=== PATIENT | female | born 1955 | race African-American/Black ===

== ENCOUNTER 2022-09-02 15:50 | Inpatient (IN) | payer OTHER, BC ==
[2022-09-02 18:18] LABS: BASO % 0.4 % (0-2.0); HEMATOCRIT 28.6 % (32.4-45.2); HEMOGLOBIN 8.8 GM/dL (10.7-15.3); LYMPH % 15.1 % (8-40); MCH 28.3 pg (25.7-33.7); MCHC 30.6 g/dl (32.0-36.0); MEAN CELL VOLUME 92.5 fl (80-96); MEAN PLT VOLUME 8.1 fl (7.5-11.1); MONO % 9.3 % (3.8-10.2); NEUT % 74.2 % (42.8-82.8); PLATELET COUNT 246 10^3/uL (134-434); RDW 20.9 % (11.6-15.6); WHITE BLOOD COUNT 6.8 K/mm3 (4.0-10.0)
[2022-09-02 18:27] LABS: INR 1.03 (0.83-1.09); PROTHROMBIN TIME (PATIENT) 11.9 SEC (9.7-13.0)
[2022-09-02 18:30] LABS: ACTIVATED PTT 28.2 SECONDS (25.2-36.5)
[2022-09-02 18:40] LABS: CALCIUM 8.7 mg/dL (8.5-10.1)
[2022-09-02 18:41] LABS: ALBUMIN 1.5 g/dl (3.4-5.0); BLOOD UREA NITROGEN 36.9 mg/dL (7-18); MAGNESIUM 2.6 mg/dL (1.8-2.4)
[2022-09-02 18:44] LABS: CREATININE 5.9 mg/dL (0.55-1.3); PHOSPHOROUS 4.2 mg/dL (2.5-4.9)
[2022-09-02 18:45] LABS: BILIRUBIN,TOTAL 0.2 mg/dL (0.2-1); TOT PROT 5.5 g/dl (6.4-8.2)
[2022-09-02 20:47] LABS: ANISOCYTOSIS 3+; MACROCYTOSIS 1+; OVALOCYTE 1+
[2022-09-02 21:08] LABS: PLATELET ESTIMATE ADEQUATE
[2022-09-03 08:01] LABS: BASO % 0.6 % (0-2.0); HEMOGLOBIN 8.3 GM/dL (10.7-15.3); LYMPH % 19.5 % (8-40); MCH 29.2 pg (25.7-33.7); MCHC 31.8 g/dl (32.0-36.0); MEAN CELL VOLUME 91.6 fl (80-96); MEAN PLT VOLUME 8.3 fl (7.5-11.1); MONO % 11.4 % (3.8-10.2); NEUT % 67.5 % (42.8-82.8); PLATELET COUNT 251 10^3/uL (134-434); RBC 2.84 M/mm3 (3.60-5.2); WHITE BLOOD COUNT 7.8 K/mm3 (4.0-10.0)
[2022-09-03 08:23] LABS: ALBUMIN 1.4 g/dl (3.4-5.0); BLOOD UREA NITROGEN 39.7 mg/dL (7-18); CALCIUM 8.7 mg/dL (8.5-10.1)
[2022-09-03 08:28] LABS: BILIRUBIN,TOTAL 0.3 mg/dL (0.2-1)
[2022-09-03] MEDS ORDERED: SODIUM CHLORIDE 250 ML IV PRN (08:46)
[2022-09-03] MEDS ORDERED: EPOETIN ALFA-EPBX 10,000 UNIT/ML VIAL SQ ONE (09:00)
[2022-09-03] MEDS ORDERED: FLU VACC QS2022-23(6MOS UP)/PF 60 MCG/0.5 ML SYRINGE IM ONE (13:00)
[2022-09-03] MEDS ORDERED: BISACODYL 10 MG SUPP.RECT RC PRN (21:12)
[2022-09-03] MEDS ORDERED: POLYETHYLENE GLYCOL (HEALTHYLAX) 3350 17 GM PACKET PO PRN (21:12)
[2022-09-03] MEDS ORDERED: SODIUM PHOSPHATE/NA BIPHOS 133 ML ENEMA RC PRN (21:12)
[2022-09-03] MEDS ORDERED: MAGNESIUM HYDROX 2400MG/30ML ORAL SUSPENSION 30 ML CUP PO PRN (21:12)
[2022-09-03] MEDS: GABAPENTIN 100 MG CAPSULE PO SCH (22:16)
[2022-09-03] MEDS: ATORVASTATIN CA 40 MG TABLET (FP) PO SCH (22:16)
[2022-09-03] MEDS: ARTIFICIAL TEARS (POLYVINYL ALCOHOL) OPTH DROPS OU SCH (22:17)
[2022-09-04] MEDS: oxyCODONE HCL 5 MG TABLET PO PRN ×2 (02:04→13:31)
[2022-09-04] MEDS: ACETAMINOPHEN 325 MG TABLET (FP) PO PRN ×2 (02:05→13:30)
[2022-09-04] MEDS: GABAPENTIN 100 MG CAPSULE PO SCH ×3 (05:36→22:46)
[2022-09-04] MEDS: SEVELAMER CARBONATE 800 MG TAB (FP) PO SCH ×3 (11:48→17:24)
[2022-09-04] MEDS: FOLIC ACID 1 MG TABLET (FP) PO SCH (11:48)
[2022-09-04] MEDS: FAMOTIDINE 10 MG TABLET PO SCH (11:48)
[2022-09-04] MEDS: ARTIFICIAL TEARS (POLYVINYL ALCOHOL) OPTH DROPS OU SCH ×4 (13:33→22:48)
[2022-09-04] MEDS: ATORVASTATIN CA 40 MG TABLET (FP) PO SCH (22:46)
[2022-09-05] MEDS: GABAPENTIN 100 MG CAPSULE PO SCH ×3 (06:04→22:12)
[2022-09-05] MEDS: SEVELAMER CARBONATE 800 MG TAB (FP) PO SCH ×3 (08:44→17:14)
[2022-09-05] MEDS: ARTIFICIAL TEARS (POLYVINYL ALCOHOL) OPTH DROPS OU SCH ×4 (11:20→22:13)
[2022-09-05] MEDS: FERROUS SO4 325 MG TABLET (FP) PO SCH (11:21)
[2022-09-05] MEDS: FAMOTIDINE 10 MG TABLET PO SCH (11:21)
[2022-09-05] MEDS: FOLIC ACID 1 MG TABLET (FP) PO SCH (11:21)
[2022-09-05] MEDS: oxyCODONE HCL 5 MG TABLET PO PRN (18:19)
[2022-09-05] MEDS: ATORVASTATIN CA 40 MG TABLET (FP) PO SCH (22:12)
[2022-09-06] MEDS: GABAPENTIN 100 MG CAPSULE PO SCH ×3 (06:15→21:53)
[2022-09-06] MEDS ORDERED: SODIUM CHLORIDE 250 ML IV PRN (07:50)
[2022-09-06] MEDS: SEVELAMER CARBONATE 800 MG TAB (FP) PO SCH ×3 (08:02→17:11)
[2022-09-06] MEDS ORDERED: EPOETIN ALFA-EPBX 4,000 UNIT/ML VIAL IVPUSH ONE (10:00)
[2022-09-06] MEDS: FOLIC ACID 1 MG TABLET (FP) PO SCH (12:40)
[2022-09-06] MEDS: FAMOTIDINE 10 MG TABLET PO SCH (12:40)
[2022-09-06] MEDS: ARTIFICIAL TEARS (POLYVINYL ALCOHOL) OPTH DROPS OU SCH ×5 (12:41→22:23)
[2022-09-06] MEDS: COLLAGENASE CLOSTRIDIUM HIST. 30 GRAMS TUBE TP SCH (14:32)
[2022-09-06] MEDS: AMINO ACIDS/PROTEIN HYDROLYS 30 ML LIQUID.PKT PO SCH (17:11)
[2022-09-06] MEDS: oxyCODONE HCL 5 MG TABLET PO PRN (17:34)
[2022-09-06] MEDS: ACETAMINOPHEN 325 MG TABLET (FP) PO PRN (17:35)
[2022-09-06] MEDS: ATORVASTATIN CA 40 MG TABLET (FP) PO SCH (21:53)
[2022-09-07] MEDS: GABAPENTIN 100 MG CAPSULE PO SCH ×3 (06:13→22:52)
[2022-09-07] MEDS: ZINC SULFATE 220 MG CAPSULE (FP) PO SCH (09:49)
[2022-09-07] MEDS: FAMOTIDINE 10 MG TABLET PO SCH (09:49)
[2022-09-07] MEDS: FOLIC ACID 1 MG TABLET (FP) PO SCH (09:50)
[2022-09-07] MEDS: VITAMIN B COMP W-C 1 EA TABLET (NEPHRO-VITE) PO SCH (09:50)
[2022-09-07] MEDS: SEVELAMER CARBONATE 800 MG TAB (FP) PO SCH ×3 (09:50→17:20)
[2022-09-07] MEDS: AMINO ACIDS/PROTEIN HYDROLYS 30 ML LIQUID.PKT PO SCH ×2 (09:50→17:20)
[2022-09-07] MEDS: FERROUS SO4 325 MG TABLET (FP) PO SCH (09:50)
[2022-09-07] MEDS: ARTIFICIAL TEARS (POLYVINYL ALCOHOL) OPTH DROPS OU SCH ×4 (09:52→22:53)
[2022-09-07] MEDS: COLLAGENASE CLOSTRIDIUM HIST. 30 GRAMS TUBE TP SCH (09:53)
[2022-09-07] MEDS ORDERED: SODIUM CHLORIDE 250 ML IV PRN (13:03)
[2022-09-07] MEDS: ATORVASTATIN CA 40 MG TABLET (FP) PO SCH (22:53)
[2022-09-08] MEDS: GABAPENTIN 100 MG CAPSULE PO SCH ×3 (06:10→21:04)
[2022-09-08] MEDS: oxyCODONE HCL 5 MG TABLET PO PRN ×3 (06:34→21:08)
[2022-09-08] MEDS: ARTIFICIAL TEARS (POLYVINYL ALCOHOL) OPTH DROPS OU SCH ×5 (09:01→21:03)
[2022-09-08] MEDS ORDERED: EPOETIN ALFA-EPBX 10,000 UNIT/ML VIAL SQ ONE (09:30)
[2022-09-08 09:39] LABS: HEMATOCRIT 26.3 % (32.4-45.2); HEMOGLOBIN 8.4 GM/dL (10.7-15.3); MCH 29.3 pg (25.7-33.7); MCHC 31.8 g/dl (32.0-36.0); MEAN PLT VOLUME 8.5 fl (7.5-11.1); PLATELET COUNT 278 10^3/uL (134-434); RBC 2.86 M/mm3 (3.60-5.2); RDW 21.2 % (11.6-15.6)
[2022-09-08 10:01] LABS: CALCIUM 8.8 mg/dL (8.5-10.1)
[2022-09-08 10:02] LABS: ALBUMIN 1.4 g/dl (3.4-5.0); BLOOD UREA NITROGEN 27.5 mg/dL (7-18)
[2022-09-08 10:04] LABS: CREATININE 4.6 mg/dL (0.55-1.3)
[2022-09-08 10:06] LABS: BILIRUBIN,TOTAL 0.3 mg/dL (0.2-1); TOT PROT 5.2 g/dl (6.4-8.2)
[2022-09-08] MEDS: AMINO ACIDS/PROTEIN HYDROLYS 30 ML LIQUID.PKT PO SCH ×2 (12:19→17:42)
[2022-09-08] MEDS: SEVELAMER CARBONATE 800 MG TAB (FP) PO SCH ×3 (12:20→17:42)
[2022-09-08] MEDS: FOLIC ACID 1 MG TABLET (FP) PO SCH (12:20)
[2022-09-08] MEDS: FAMOTIDINE 10 MG TABLET PO SCH (12:20)
[2022-09-08] MEDS: VITAMIN B COMP W-C 1 EA TABLET (NEPHRO-VITE) PO SCH (12:21)
[2022-09-08] MEDS: COLLAGENASE CLOSTRIDIUM HIST. 30 GRAMS TUBE TP SCH (12:21)
[2022-09-08] MEDS: ZINC SULFATE 220 MG CAPSULE (FP) PO SCH (12:21)
[2022-09-08] MEDS ORDERED: oxyCODONE HCL 5 MG TABLET PO PRN (17:06)
[2022-09-08] MEDS: TOBRAMYCIN 0.3% OPHTH SOLN 5 ML BOTTLE OD SCH ×2 (17:19→21:02)
[2022-09-08] MEDS: ACETAMINOPHEN 325 MG TABLET (FP) PO PRN (18:53)
[2022-09-08] MEDS: ATORVASTATIN CA 40 MG TABLET (FP) PO SCH (21:04)
[2022-09-09] MEDS: TOBRAMYCIN 0.3% OPHTH SOLN 5 ML BOTTLE OD SCH ×3 (05:45→22:15)
[2022-09-09] MEDS: GABAPENTIN 100 MG CAPSULE PO SCH ×3 (05:45→22:15)
[2022-09-09] MEDS: ACETAMINOPHEN 325 MG TABLET (FP) PO PRN ×2 (05:45→20:37)
[2022-09-09] MEDS: oxyCODONE HCL 5 MG TABLET PO PRN ×2 (05:46→20:36)
[2022-09-09] MEDS: AMINO ACIDS/PROTEIN HYDROLYS 30 ML LIQUID.PKT PO SCH ×2 (09:26→17:23)
[2022-09-09] MEDS: SEVELAMER CARBONATE 800 MG TAB (FP) PO SCH ×3 (09:27→17:23)
[2022-09-09] MEDS: FERROUS SO4 325 MG TABLET (FP) PO SCH (09:27)
[2022-09-09] MEDS: FOLIC ACID 1 MG TABLET (FP) PO SCH (09:27)
[2022-09-09] MEDS: VITAMIN B COMP W-C 1 EA TABLET (NEPHRO-VITE) PO SCH (09:27)
[2022-09-09] MEDS: FAMOTIDINE 10 MG TABLET PO SCH (09:27)
[2022-09-09] MEDS: ZINC SULFATE 220 MG CAPSULE (FP) PO SCH (09:27)
[2022-09-09] MEDS: ARTIFICIAL TEARS (POLYVINYL ALCOHOL) OPTH DROPS OU SCH ×4 (09:28→22:15)
[2022-09-09] MEDS: COLLAGENASE CLOSTRIDIUM HIST. 30 GRAMS TUBE TP SCH (09:29)
[2022-09-09] MEDS ORDERED: SODIUM CHLORIDE 250 ML IV PRN (21:10)
[2022-09-09] MEDS: ATORVASTATIN CA 40 MG TABLET (FP) PO SCH (22:15)
[2022-09-10] MEDS: GABAPENTIN 100 MG CAPSULE PO SCH ×3 (05:57→22:48)
[2022-09-10] MEDS: TOBRAMYCIN 0.3% OPHTH SOLN 5 ML BOTTLE OD SCH ×3 (06:01→22:49)
[2022-09-10] MEDS: AMINO ACIDS/PROTEIN HYDROLYS 30 ML LIQUID.PKT PO SCH ×2 (08:02→17:49)
[2022-09-10] MEDS: SEVELAMER CARBONATE 800 MG TAB (FP) PO SCH ×3 (08:02→17:49)
[2022-09-10] MEDS: oxyCODONE HCL 5 MG TABLET PO PRN (08:48)
[2022-09-10] MEDS: ACETAMINOPHEN 325 MG TABLET (FP) PO PRN (08:49)
[2022-09-10] MEDS ORDERED: metoPROLOL SUCCINATE 25 MG TAB.SR.24H (FP) PO ONE (09:30)
[2022-09-10] MEDS ORDERED: metoPROLOL SUCCINATE 25 MG TAB.SR.24H (FP) PO SCH (10:00)
[2022-09-10] MEDS ORDERED: EPOETIN ALFA-EPBX 10,000 UNIT/ML VIAL IVPUSH ONE (10:30)
[2022-09-10] MEDS: HEPARIN NA (PORCINE) 5,000 UNITS/ML 1ML VIAL SQ SCH ×2 (13:15→22:48)
[2022-09-10] MEDS: FAMOTIDINE 10 MG TABLET PO SCH (13:15)
[2022-09-10] MEDS: FOLIC ACID 1 MG TABLET (FP) PO SCH (13:15)
[2022-09-10] MEDS: VITAMIN B COMP W-C 1 EA TABLET (NEPHRO-VITE) PO SCH (13:15)
[2022-09-10] MEDS: ZINC SULFATE 220 MG CAPSULE (FP) PO SCH (13:15)
[2022-09-10] MEDS: COLLAGENASE CLOSTRIDIUM HIST. 30 GRAMS TUBE TP SCH (13:16)
[2022-09-10] MEDS: ARTIFICIAL TEARS (POLYVINYL ALCOHOL) OPTH DROPS OU SCH ×4 (13:16→22:49)
[2022-09-10] MEDS ORDERED: APIXABAN 5 MG TABLET PO SCH (13:45)
[2022-09-10] MEDS: CYCLOBENZAPRINE HCL 5 MG TABLET PO SCH (15:14)
[2022-09-10 19:25] LABS: BLOOD UREA NITROGEN 16.6 mg/dL (7-18); CALCIUM 8.4 mg/dL (8.5-10.1)
[2022-09-10 19:28] LABS: CREATININE 2.7 mg/dL (0.55-1.3)
[2022-09-10] MEDS ORDERED: METOPROLOL TARTRATE 25 MG TABLET (FP) PO SCH (22:00)
[2022-09-10] MEDS: METOPROLOL TARTRATE 25 MG TABLET (FP) PO SCH (22:48)
[2022-09-10] MEDS: ATORVASTATIN CA 40 MG TABLET (FP) PO SCH (22:48)
[2022-09-11] MEDS ORDERED: BISACODYL 10 MG SUPP.RECT RC PRN (02:58)
[2022-09-11] MEDS ORDERED: oxyCODONE HCL 5 MG TABLET PO PRN (02:58)
[2022-09-11] MEDS ORDERED: ACETAMINOPHEN 325 MG TABLET (FP) PO PRN (02:58)
[2022-09-11] MEDS ORDERED: POLYETHYLENE GLYCOL (HEALTHYLAX) 3350 17 GM PACKET PO PRN (02:58)
[2022-09-11] MEDS ORDERED: SODIUM PHOSPHATE/NA BIPHOS 133 ML ENEMA RC PRN (02:58)
[2022-09-11] MEDS ORDERED: MAGNESIUM HYDROX 2400MG/30ML ORAL SUSPENSION 30 ML CUP PO PRN (02:58)
[2022-09-11] MEDS: METOPROLOL TARTRATE 25 MG TABLET (FP) PO SCH ×3 (07:07→22:44)
[2022-09-11] MEDS: GABAPENTIN 100 MG CAPSULE PO SCH ×3 (07:07→22:44)
[2022-09-11] MEDS: TOBRAMYCIN 0.3% OPHTH SOLN 5 ML BOTTLE OD SCH ×3 (07:11→22:45)
[2022-09-11] MEDS: SEVELAMER CARBONATE 800 MG TAB (FP) PO SCH ×3 (07:45→18:25)
[2022-09-11] MEDS: AMINO ACIDS/PROTEIN HYDROLYS 30 ML LIQUID.PKT PO SCH ×2 (07:45→18:25)
[2022-09-11] MEDS: FOLIC ACID 1 MG TABLET (FP) PO SCH (10:14)
[2022-09-11] MEDS: HEPARIN NA (PORCINE) 5,000 UNITS/ML 1ML VIAL SQ SCH ×2 (10:15→22:44)
[2022-09-11] MEDS: VITAMIN B COMP W-C 1 EA TABLET (NEPHRO-VITE) PO SCH (10:15)
[2022-09-11] MEDS: CYCLOBENZAPRINE HCL 5 MG TABLET PO SCH (10:15)
[2022-09-11] MEDS: ZINC SULFATE 220 MG CAPSULE (FP) PO SCH (10:15)
[2022-09-11] MEDS: FERROUS SO4 325 MG TABLET (FP) PO SCH (10:15)
[2022-09-11] MEDS: FAMOTIDINE 10 MG TABLET PO SCH (10:15)
[2022-09-11] MEDS: ARTIFICIAL TEARS (POLYVINYL ALCOHOL) OPTH DROPS OU SCH ×4 (10:16→22:45)
[2022-09-11] MEDS: COLLAGENASE CLOSTRIDIUM HIST. 30 GRAMS TUBE TP SCH (10:17)
[2022-09-11] MEDS ORDERED: AMOX TR/POT CLAV 500MG/125MG TABLETS (FP) PO ONE (12:00)
[2022-09-11] MEDS: oxyCODONE HCL 5 MG TABLET PO PRN (12:47)
[2022-09-11] MEDS ORDERED: VANCOMYCIN 1 GM in D5W (PRE-DOCKED) 1,000 MG/250 ML IVPB ONE (16:00)
[2022-09-11] MEDS ORDERED: AMOX TR/POT CLAV 500MG/125MG TABLETS (FP) PO SCH (17:30)
[2022-09-11] MEDS ORDERED: PIPERACILLIN/TAZOB 2.25 GM 2.25 GM in DEXTROSE 5%-WATER - 50 ML IVPB SCH (18:00)
[2022-09-11] MEDS ORDERED: VANCOMYCIN 1 GM/200 ML PREMIX BAG (RESTRICTED TO ID ONLY) IVPB ONE (18:15)
[2022-09-11] MEDS: PIPERACILLIN/TAZOB 2.25 GM 2.25 GM in DEXTROSE 5%-WATER - 50 ML IVPB SCH (21:43)
[2022-09-11] MEDS: ATORVASTATIN CA 40 MG TABLET (FP) PO SCH (22:44)
[2022-09-12] MEDS: PIPERACILLIN/TAZOB 2.25 GM 2.25 GM in DEXTROSE 5%-WATER - 50 ML IVPB SCH ×3 (02:28→18:57)
[2022-09-12] MEDS: GABAPENTIN 100 MG CAPSULE PO SCH ×3 (07:17→21:43)
[2022-09-12] MEDS: METOPROLOL TARTRATE 25 MG TABLET (FP) PO SCH ×3 (07:17→21:47)
[2022-09-12] MEDS: TOBRAMYCIN 0.3% OPHTH SOLN 5 ML BOTTLE OD SCH ×3 (07:18→21:45)
[2022-09-12] MEDS: SEVELAMER CARBONATE 800 MG TAB (FP) PO SCH ×3 (08:47→17:52)
[2022-09-12] MEDS: AMINO ACIDS/PROTEIN HYDROLYS 30 ML LIQUID.PKT PO SCH ×2 (08:47→17:52)
[2022-09-12] MEDS: ZINC SULFATE 220 MG CAPSULE (FP) PO SCH (10:53)
[2022-09-12] MEDS: CYCLOBENZAPRINE HCL 5 MG TABLET PO SCH (10:53)
[2022-09-12] MEDS: FAMOTIDINE 10 MG TABLET PO SCH (10:53)
[2022-09-12] MEDS: FOLIC ACID 1 MG TABLET (FP) PO SCH (10:53)
[2022-09-12] MEDS: VITAMIN B COMP W-C 1 EA TABLET (NEPHRO-VITE) PO SCH (10:53)
[2022-09-12] MEDS: HEPARIN NA (PORCINE) 5,000 UNITS/ML 1ML VIAL SQ SCH ×2 (10:54→21:44)
[2022-09-12] MEDS: COLLAGENASE CLOSTRIDIUM HIST. 30 GRAMS TUBE TP SCH (10:54)
[2022-09-12] MEDS: ARTIFICIAL TEARS (POLYVINYL ALCOHOL) OPTH DROPS OU SCH ×4 (10:54→21:45)
[2022-09-12] MEDS: oxyCODONE HCL 5 MG TABLET PO PRN (13:13)
[2022-09-12] MEDS ORDERED: VANCOMYCIN/WATER FOR INJ (PEG) 1,000 MG/200 ML BAG IVPB ONE (15:45)
[2022-09-12] MEDS: ATORVASTATIN CA 40 MG TABLET (FP) PO SCH (21:44)
[2022-09-13] MEDS: PIPERACILLIN/TAZOB 2.25 GM 2.25 GM in DEXTROSE 5%-WATER - 50 ML IVPB SCH ×3 (01:16→17:30)
[2022-09-13] MEDS: GABAPENTIN 100 MG CAPSULE PO SCH ×3 (06:27→23:08)
[2022-09-13] MEDS: METOPROLOL TARTRATE 25 MG TABLET (FP) PO SCH ×3 (06:27→23:08)
[2022-09-13] MEDS: TOBRAMYCIN 0.3% OPHTH SOLN 5 ML BOTTLE OD SCH ×2 (06:39→14:54)
[2022-09-13] MEDS: AMINO ACIDS/PROTEIN HYDROLYS 30 ML LIQUID.PKT PO SCH ×2 (08:55→17:30)
[2022-09-13] MEDS: SEVELAMER CARBONATE 800 MG TAB (FP) PO SCH ×3 (08:55→17:30)
[2022-09-13] MEDS ORDERED: SODIUM CHLORIDE 250 ML IV PRN ×2 (09:48→22:29)
[2022-09-13] MEDS: oxyCODONE HCL 5 MG TABLET PO PRN (10:10)
[2022-09-13] MEDS ORDERED: EPOETIN ALFA-EPBX 4,000 UNIT/ML VIAL SQ ONE (10:15)
[2022-09-13 10:28] LABS: HEMATOCRIT 27.3 % (32.4-45.2); HEMOGLOBIN 8.7 GM/dL (10.7-15.3); MCH 29.3 pg (25.7-33.7); MCHC 31.7 g/dl (32.0-36.0); MEAN CELL VOLUME 92.3 fl (80-96); MEAN PLT VOLUME 9.4 fl (7.5-11.1); PLATELET COUNT 310 10^3/uL (134-434); RBC 2.96 M/mm3 (3.60-5.2); RDW 21.6 % (11.6-15.6); WHITE BLOOD COUNT 12.3 K/mm3 (4.0-10.0)
[2022-09-13] MEDS: COLLAGENASE CLOSTRIDIUM HIST. 30 GRAMS TUBE TP SCH (12:46)
[2022-09-13] MEDS: HEPARIN NA (PORCINE) 5,000 UNITS/ML 1ML VIAL SQ SCH ×2 (12:46→23:08)
[2022-09-13] MEDS: ZINC SULFATE 220 MG CAPSULE (FP) PO SCH (12:50)
[2022-09-13] MEDS: FAMOTIDINE 10 MG TABLET PO SCH (12:50)
[2022-09-13] MEDS: CYCLOBENZAPRINE HCL 5 MG TABLET PO SCH (12:50)
[2022-09-13] MEDS: VITAMIN B COMP W-C 1 EA TABLET (NEPHRO-VITE) PO SCH (12:50)
[2022-09-13] MEDS: FOLIC ACID 1 MG TABLET (FP) PO SCH (12:50)
[2022-09-13] MEDS: ARTIFICIAL TEARS (POLYVINYL ALCOHOL) OPTH DROPS OU SCH ×4 (12:53→23:08)
[2022-09-13] MEDS: FERROUS SO4 325 MG TABLET (FP) PO SCH (12:53)
[2022-09-13] MEDS ORDERED: BISACODYL 10 MG SUPP.RECT RC PRN (22:29)
[2022-09-13] MEDS ORDERED: MAGNESIUM HYDROX 2400MG/30ML ORAL SUSPENSION 30 ML CUP PO PRN (22:29)
[2022-09-13] MEDS ORDERED: POLYETHYLENE GLYCOL (HEALTHYLAX) 3350 17 GM PACKET PO PRN (22:29)
[2022-09-13] MEDS ORDERED: SODIUM PHOSPHATE/NA BIPHOS 133 ML ENEMA RC PRN (22:29)
[2022-09-13] MEDS ORDERED: oxyCODONE HCL 5 MG TABLET PO PRN (22:29)
[2022-09-13] MEDS: ATORVASTATIN CA 40 MG TABLET (FP) PO SCH (23:08)
[2022-09-14] MEDS: PIPERACILLIN/TAZOB 2.25 GM 2.25 GM in DEXTROSE 5%-WATER - 50 ML IVPB SCH ×2 (02:20→10:17)
[2022-09-14] MEDS: TOBRAMYCIN 0.3% OPHTH SOLN 5 ML BOTTLE OD SCH ×4 (02:22→23:00)
[2022-09-14] MEDS: METOPROLOL TARTRATE 25 MG TABLET (FP) PO SCH ×2 (07:06→14:38)
[2022-09-14] MEDS: GABAPENTIN 100 MG CAPSULE PO SCH ×2 (07:06→14:38)
[2022-09-14] MEDS: SEVELAMER CARBONATE 800 MG TAB (FP) PO SCH ×3 (09:18→17:46)
[2022-09-14] MEDS: AMINO ACIDS/PROTEIN HYDROLYS 30 ML LIQUID.PKT PO SCH ×2 (10:17→17:46)
[2022-09-14] MEDS: ZINC SULFATE 220 MG CAPSULE (FP) PO SCH (10:17)
[2022-09-14] MEDS: VITAMIN B COMP W-C 1 EA TABLET (NEPHRO-VITE) PO SCH (10:18)
[2022-09-14] MEDS: CYCLOBENZAPRINE HCL 5 MG TABLET PO SCH (10:18)
[2022-09-14] MEDS: ARTIFICIAL TEARS (POLYVINYL ALCOHOL) OPTH DROPS OU SCH ×4 (10:18→23:00)
[2022-09-14] MEDS: FAMOTIDINE 10 MG TABLET PO SCH (10:18)
[2022-09-14] MEDS: FOLIC ACID 1 MG TABLET (FP) PO SCH (10:18)
[2022-09-14] MEDS: HEPARIN NA (PORCINE) 5,000 UNITS/ML 1ML VIAL SQ SCH ×2 (10:33→23:00)
[2022-09-14] MEDS: COLLAGENASE CLOSTRIDIUM HIST. 30 GRAMS TUBE TP SCH (10:33)
[2022-09-14] MEDS ORDERED: AMOX TR/POT CLAV 500MG/125MG TABLETS (FP) PO ONE (13:58)
[2022-09-14] MEDS: AMOX TR/POT CLAV 500MG/125MG TABLETS (FP) PO SCH (17:46)
[2022-09-14] MEDS ORDERED: SODIUM CHLORIDE 250 ML IV PRN (19:51)
[2022-09-14] MEDS: OFLOXACIN 0.3% OTIC SOLUTION 5 ML BOTTLE AS SCH (23:00)
[2022-09-15] MEDS: METOPROLOL TARTRATE 25 MG TABLET (FP) PO SCH ×4 (02:29→22:02)
[2022-09-15] MEDS: GABAPENTIN 100 MG CAPSULE PO SCH ×3 (02:32→14:30)
[2022-09-15] MEDS: ATORVASTATIN CA 40 MG TABLET (FP) PO SCH ×2 (02:33→22:02)
[2022-09-15] MEDS: TOBRAMYCIN 0.3% OPHTH SOLN 5 ML BOTTLE OD SCH ×3 (07:23→22:36)
[2022-09-15] MEDS: ACETAMINOPHEN 325 MG TABLET (FP) PO PRN (08:33)
[2022-09-15] MEDS: oxyCODONE HCL 5 MG TABLET PO PRN (08:34)
[2022-09-15] MEDS ORDERED: EPOETIN ALFA-EPBX 4,000 UNIT/ML VIAL IVPUSH ONE (09:00)
[2022-09-15] MEDS: SEVELAMER CARBONATE 800 MG TAB (FP) PO SCH ×3 (09:23→17:39)
[2022-09-15] MEDS: HEPARIN NA (PORCINE) 5,000 UNITS/ML 1ML VIAL SQ SCH ×2 (09:23→22:02)
[2022-09-15] MEDS: AMINO ACIDS/PROTEIN HYDROLYS 30 ML LIQUID.PKT PO SCH ×2 (09:23→17:38)
[2022-09-15] MEDS: ZINC SULFATE 220 MG CAPSULE (FP) PO SCH (09:24)
[2022-09-15] MEDS: FOLIC ACID 1 MG TABLET (FP) PO SCH (09:24)
[2022-09-15] MEDS: FAMOTIDINE 10 MG TABLET PO SCH (09:24)
[2022-09-15] MEDS: FERROUS SO4 325 MG TABLET (FP) PO SCH (09:24)
[2022-09-15] MEDS: CYCLOBENZAPRINE HCL 5 MG TABLET PO SCH (09:24)
[2022-09-15] MEDS: VITAMIN B COMP W-C 1 EA TABLET (NEPHRO-VITE) PO SCH (09:25)
[2022-09-15] MEDS: AMOX TR/POT CLAV 500MG/125MG TABLETS (FP) PO SCH ×2 (09:25→17:38)
[2022-09-15] MEDS: ARTIFICIAL TEARS (POLYVINYL ALCOHOL) OPTH DROPS OU SCH ×4 (09:26→22:01)
[2022-09-15] MEDS: OFLOXACIN 0.3% OTIC SOLUTION 5 ML BOTTLE AS SCH ×2 (09:26→22:13)
[2022-09-15 10:36] LABS: HEMATOCRIT 23.9 % (32.4-45.2); HEMOGLOBIN 7.6 GM/dL (10.7-15.3); MCH 29.5 pg (25.7-33.7); MCHC 31.6 g/dl (32.0-36.0); MEAN CELL VOLUME 93.1 fl (80-96); MEAN PLT VOLUME 8.9 fl (7.5-11.1); PLATELET COUNT 282 10^3/uL (134-434); RBC 2.57 M/mm3 (3.60-5.2); RDW 21.4 % (11.6-15.6); WHITE BLOOD COUNT 9.3 K/mm3 (4.0-10.0)
[2022-09-15] MEDS: COLLAGENASE CLOSTRIDIUM HIST. 30 GRAMS TUBE TP SCH (14:31)
[2022-09-16] MEDS: oxyCODONE HCL 5 MG TABLET PO PRN (01:12)
[2022-09-16] MEDS: METOPROLOL TARTRATE 25 MG TABLET (FP) PO SCH ×2 (05:25→13:30)
[2022-09-16] MEDS: TOBRAMYCIN 0.3% OPHTH SOLN 5 ML BOTTLE OD SCH ×3 (06:35→22:31)
[2022-09-16] MEDS: SEVELAMER CARBONATE 800 MG TAB (FP) PO SCH ×3 (10:13→17:56)
[2022-09-16] MEDS: VITAMIN B COMP W-C 1 EA TABLET (NEPHRO-VITE) PO SCH (10:13)
[2022-09-16] MEDS: ZINC SULFATE 220 MG CAPSULE (FP) PO SCH (10:13)
[2022-09-16] MEDS: FAMOTIDINE 10 MG TABLET PO SCH (10:13)
[2022-09-16] MEDS: FOLIC ACID 1 MG TABLET (FP) PO SCH (10:13)
[2022-09-16] MEDS: AMINO ACIDS/PROTEIN HYDROLYS 30 ML LIQUID.PKT PO SCH ×2 (10:13→17:56)
[2022-09-16] MEDS: AMOX TR/POT CLAV 500MG/125MG TABLETS (FP) PO SCH ×2 (10:13→17:56)
[2022-09-16] MEDS: HEPARIN NA (PORCINE) 5,000 UNITS/ML 1ML VIAL SQ SCH ×2 (10:14→22:31)
[2022-09-16] MEDS: COLLAGENASE CLOSTRIDIUM HIST. 30 GRAMS TUBE TP SCH (10:14)
[2022-09-16] MEDS: OFLOXACIN 0.3% OTIC SOLUTION 5 ML BOTTLE AS SCH ×2 (10:14→22:30)
[2022-09-16] MEDS: ARTIFICIAL TEARS (POLYVINYL ALCOHOL) OPTH DROPS OU SCH ×4 (10:14→22:00)
[2022-09-16] MEDS ORDERED: SODIUM CHLORIDE 250 ML IV PRN (16:36)
[2022-09-16] MEDS: ATORVASTATIN CA 40 MG TABLET (FP) PO SCH (22:00)
[2022-09-17] MEDS: METOPROLOL TARTRATE 25 MG TABLET (FP) PO SCH ×4 (02:50→22:19)
[2022-09-17] MEDS: TOBRAMYCIN 0.3% OPHTH SOLN 5 ML BOTTLE OD SCH ×3 (06:00→22:19)
[2022-09-17] MEDS: FOLIC ACID 1 MG TABLET (FP) PO SCH (09:35)
[2022-09-17] MEDS: SEVELAMER CARBONATE 800 MG TAB (FP) PO SCH ×3 (09:36→17:53)
[2022-09-17] MEDS: HEPARIN NA (PORCINE) 5,000 UNITS/ML 1ML VIAL SQ SCH ×2 (09:36→22:18)
[2022-09-17] MEDS: AMINO ACIDS/PROTEIN HYDROLYS 30 ML LIQUID.PKT PO SCH ×2 (09:36→17:57)
[2022-09-17] MEDS: FAMOTIDINE 10 MG TABLET PO SCH (09:36)
[2022-09-17] MEDS: ZINC SULFATE 220 MG CAPSULE (FP) PO SCH (09:36)
[2022-09-17] MEDS: FERROUS SO4 325 MG TABLET (FP) PO SCH (09:36)
[2022-09-17] MEDS: AMOX TR/POT CLAV 500MG/125MG TABLETS (FP) PO SCH (09:36)
[2022-09-17] MEDS: VITAMIN B COMP W-C 1 EA TABLET (NEPHRO-VITE) PO SCH (09:36)
[2022-09-17] MEDS: ARTIFICIAL TEARS (POLYVINYL ALCOHOL) OPTH DROPS OU SCH ×5 (09:45→22:20)
[2022-09-17] MEDS: OFLOXACIN 0.3% OTIC SOLUTION 5 ML BOTTLE AS SCH ×2 (09:50→22:20)
[2022-09-17] MEDS ORDERED: PIPERACILLIN/TAZOB 2.25 GM 2.25 GM in DEXTROSE 5%-WATER - 50 ML IVPB SCH (10:45)
[2022-09-17] MEDS ORDERED: EPOETIN ALFA-EPBX 10,000 UNIT/ML VIAL SQ ONE (11:15)
[2022-09-17] MEDS: COLLAGENASE CLOSTRIDIUM HIST. 30 GRAMS TUBE TP SCH (17:51)
[2022-09-17] MEDS: PIPERACILLIN/TAZOB 2.25 GM 2.25 GM in DEXTROSE 5%-WATER - 50 ML IVPB SCH ×2 (17:51→18:55)
[2022-09-17] MEDS: ACETAMINOPHEN 325 MG TABLET (FP) PO PRN ×2 (17:55→23:58)
[2022-09-17] MEDS: ATORVASTATIN CA 40 MG TABLET (FP) PO SCH (22:19)
[2022-09-18] MEDS: PIPERACILLIN/TAZOB 2.25 GM 2.25 GM in DEXTROSE 5%-WATER - 50 ML IVPB SCH ×4 (02:50→17:30)
[2022-09-18] MEDS ORDERED: oxyCODONE HCL 5 MG TABLET PO ONE (02:55)
[2022-09-18] MEDS: METOPROLOL TARTRATE 25 MG TABLET (FP) PO SCH ×3 (07:24→23:03)
[2022-09-18] MEDS: TOBRAMYCIN 0.3% OPHTH SOLN 5 ML BOTTLE OD SCH ×3 (07:25→23:06)
[2022-09-18] MEDS: AMINO ACIDS/PROTEIN HYDROLYS 30 ML LIQUID.PKT PO SCH ×2 (09:23→16:52)
[2022-09-18] MEDS: SEVELAMER CARBONATE 800 MG TAB (FP) PO SCH ×3 (09:23→16:52)
[2022-09-18] MEDS: FOLIC ACID 1 MG TABLET (FP) PO SCH (09:24)
[2022-09-18] MEDS: HEPARIN NA (PORCINE) 5,000 UNITS/ML 1ML VIAL SQ SCH ×2 (09:24→23:04)
[2022-09-18] MEDS: ZINC SULFATE 220 MG CAPSULE (FP) PO SCH (09:25)
[2022-09-18] MEDS: FAMOTIDINE 10 MG TABLET PO SCH (09:25)
[2022-09-18] MEDS: VITAMIN B COMP W-C 1 EA TABLET (NEPHRO-VITE) PO SCH (09:26)
[2022-09-18] MEDS: COLLAGENASE CLOSTRIDIUM HIST. 30 GRAMS TUBE TP SCH ×2 (09:26→15:54)
[2022-09-18] MEDS: OFLOXACIN 0.3% OTIC SOLUTION 5 ML BOTTLE AS SCH ×2 (09:27→23:05)
[2022-09-18] MEDS: ARTIFICIAL TEARS (POLYVINYL ALCOHOL) OPTH DROPS OU SCH ×4 (09:28→23:05)
[2022-09-18] MEDS: oxyCODONE HCL 5 MG TABLET PO PRN (14:58)
[2022-09-18] MEDS: ATORVASTATIN CA 40 MG TABLET (FP) PO SCH (23:04)
[2022-09-19] MEDS: PIPERACILLIN/TAZOB 2.25 GM 2.25 GM in DEXTROSE 5%-WATER - 50 ML IVPB SCH ×3 (02:24→17:18)
[2022-09-19] MEDS: METOPROLOL TARTRATE 25 MG TABLET (FP) PO SCH ×3 (05:32→22:23)
[2022-09-19] MEDS: TOBRAMYCIN 0.3% OPHTH SOLN 5 ML BOTTLE OD SCH ×3 (05:38→22:25)
[2022-09-19] MEDS: ACETAMINOPHEN 325 MG TABLET (FP) PO PRN ×2 (09:27→15:55)
[2022-09-19] MEDS: oxyCODONE HCL 5 MG TABLET PO PRN ×2 (09:28→15:54)
[2022-09-19] MEDS: AMINO ACIDS/PROTEIN HYDROLYS 30 ML LIQUID.PKT PO SCH ×2 (09:29→17:18)
[2022-09-19] MEDS: FOLIC ACID 1 MG TABLET (FP) PO SCH (09:30)
[2022-09-19] MEDS: SEVELAMER CARBONATE 800 MG TAB (FP) PO SCH ×3 (09:30→17:18)
[2022-09-19] MEDS: FERROUS SO4 325 MG TABLET (FP) PO SCH (09:30)
[2022-09-19] MEDS: ZINC SULFATE 220 MG CAPSULE (FP) PO SCH (09:30)
[2022-09-19] MEDS: FAMOTIDINE 10 MG TABLET PO SCH (09:31)
[2022-09-19] MEDS: VITAMIN B COMP W-C 1 EA TABLET (NEPHRO-VITE) PO SCH (09:31)
[2022-09-19] MEDS: HEPARIN NA (PORCINE) 5,000 UNITS/ML 1ML VIAL SQ SCH ×2 (09:31→22:23)
[2022-09-19] MEDS: OFLOXACIN 0.3% OTIC SOLUTION 5 ML BOTTLE AS SCH ×2 (09:32→22:25)
[2022-09-19] MEDS: COLLAGENASE CLOSTRIDIUM HIST. 30 GRAMS TUBE TP SCH (09:33)
[2022-09-19] MEDS: ARTIFICIAL TEARS (POLYVINYL ALCOHOL) OPTH DROPS OU SCH ×4 (09:33→22:24)
[2022-09-19 13:20] VITALS: BMI 44.2
[2022-09-19] MEDS: ATORVASTATIN CA 40 MG TABLET (FP) PO SCH (22:23)
[2022-09-20] MEDS ORDERED: ONDANSETRON 4 MG/2 ML VIAL IVPUSH ONE (01:55)
[2022-09-20] MEDS: PIPERACILLIN/TAZOB 2.25 GM 2.25 GM in DEXTROSE 5%-WATER - 50 ML IVPB SCH ×3 (02:15→18:21)
[2022-09-20] MEDS: METOPROLOL TARTRATE 25 MG TABLET (FP) PO SCH ×3 (05:12→23:29)
[2022-09-20] MEDS: TOBRAMYCIN 0.3% OPHTH SOLN 5 ML BOTTLE OD SCH ×3 (05:38→23:31)
[2022-09-20 08:28] LABS: BASO % 0.5 % (0-2.0); EOS % 3.5 % (0-4.5); HEMATOCRIT 25.9 % (32.4-45.2); HEMOGLOBIN 8.1 GM/dL (10.7-15.3); LYMPH % 13.2 % (8-40); MCH 29.4 pg (25.7-33.7); MCHC 31.4 g/dl (32.0-36.0); MEAN CELL VOLUME 93.5 fl (80-96); MEAN PLT VOLUME 8.8 fl (7.5-11.1); MONO % 6.6 % (3.8-10.2); NEUT % 76.2 % (42.8-82.8); PLATELET COUNT 338 10^3/uL (134-434); RBC 2.77 M/mm3 (3.60-5.2); RDW 21.6 % (11.6-15.6)
[2022-09-20 09:50] LABS: ANISOCYTOSIS 1+; MACROCYTOSIS 1+; OVALOCYTE 1+
[2022-09-20] MEDS ORDERED: SODIUM CHLORIDE 250 ML IV PRN (10:03)
[2022-09-20] MEDS: SEVELAMER CARBONATE 800 MG TAB (FP) PO SCH ×3 (10:12→18:21)
[2022-09-20] MEDS: AMINO ACIDS/PROTEIN HYDROLYS 30 ML LIQUID.PKT PO SCH ×2 (10:12→18:24)
[2022-09-20] MEDS: OFLOXACIN 0.3% OTIC SOLUTION 5 ML BOTTLE AS SCH ×2 (10:14→23:30)
[2022-09-20] MEDS: ARTIFICIAL TEARS (POLYVINYL ALCOHOL) OPTH DROPS OU SCH ×4 (10:15→23:31)
[2022-09-20] MEDS: oxyCODONE HCL 5 MG TABLET PO PRN ×2 (13:01→23:39)
[2022-09-20] MEDS: COLLAGENASE CLOSTRIDIUM HIST. 30 GRAMS TUBE TP SCH (13:45)
[2022-09-20] MEDS ORDERED: HEPARIN NA (PORCINE) 5,000 UNITS/ML 1ML VIAL IVPUSH ONE (14:30)
[2022-09-20] MEDS: HEPARIN NA (PORCINE) 5,000 UNITS/ML 1ML VIAL IVPUSH SCH ×3 (14:40→16:30)
[2022-09-20] MEDS ORDERED: EPOETIN ALFA-EPBX 4,000 UNIT/ML VIAL IVPUSH ONE (15:00)
[2022-09-20] MEDS ORDERED: ONDANSETRON 4 MG/2 ML VIAL IVPUSH PRN (17:40)
[2022-09-20] MEDS: HEPARIN NA (PORCINE) 5,000 UNITS/ML 1ML VIAL SQ SCH ×2 (18:02→23:29)
[2022-09-20] MEDS: FAMOTIDINE 10 MG TABLET PO SCH (18:21)
[2022-09-20] MEDS: FOLIC ACID 1 MG TABLET (FP) PO SCH (18:21)
[2022-09-20] MEDS: ZINC SULFATE 220 MG CAPSULE (FP) PO SCH (18:22)
[2022-09-20] MEDS: VITAMIN B COMP W-C 1 EA TABLET (NEPHRO-VITE) PO SCH (18:22)
[2022-09-20] MEDS ORDERED: INSULIN (NOVOLOG) ASPART 100 UNITS/ML 10ML VIAL ONE (19:03)
[2022-09-20] MEDS: ATORVASTATIN CA 40 MG TABLET (FP) PO SCH (23:29)
[2022-09-21] MEDS: PIPERACILLIN/TAZOB 2.25 GM 2.25 GM in DEXTROSE 5%-WATER - 50 ML IVPB SCH ×3 (01:25→17:23)
[2022-09-21] MEDS: TOBRAMYCIN 0.3% OPHTH SOLN 5 ML BOTTLE OD SCH ×3 (06:13→22:48)
[2022-09-21] MEDS: METOPROLOL TARTRATE 25 MG TABLET (FP) PO SCH ×3 (06:17→22:48)
[2022-09-21] MEDS: oxyCODONE HCL 5 MG TABLET PO PRN ×2 (06:25→14:02)
[2022-09-21] MEDS: AMINO ACIDS/PROTEIN HYDROLYS 30 ML LIQUID.PKT PO SCH ×2 (08:34→17:22)
[2022-09-21] MEDS: SEVELAMER CARBONATE 800 MG TAB (FP) PO SCH ×3 (08:34→17:23)
[2022-09-21] MEDS: FAMOTIDINE 10 MG TABLET PO SCH (09:24)
[2022-09-21] MEDS: FERROUS SO4 325 MG TABLET (FP) PO SCH (09:24)
[2022-09-21] MEDS: FOLIC ACID 1 MG TABLET (FP) PO SCH (09:24)
[2022-09-21] MEDS: ZINC SULFATE 220 MG CAPSULE (FP) PO SCH (09:24)
[2022-09-21] MEDS: VITAMIN B COMP W-C 1 EA TABLET (NEPHRO-VITE) PO SCH (09:24)
[2022-09-21] MEDS: OFLOXACIN 0.3% OTIC SOLUTION 5 ML BOTTLE AS SCH (09:25)
[2022-09-21] MEDS: ARTIFICIAL TEARS (POLYVINYL ALCOHOL) OPTH DROPS OU SCH ×4 (09:26→22:49)
[2022-09-21] MEDS: ACETAMINOPHEN 325 MG TABLET (FP) PO PRN (14:04)
[2022-09-21] MEDS: COLLAGENASE CLOSTRIDIUM HIST. 30 GRAMS TUBE TP SCH (14:22)
[2022-09-21] MEDS: ATORVASTATIN CA 40 MG TABLET (FP) PO SCH (22:47)
[2022-09-21] MEDS: HEPARIN NA (PORCINE) 5,000 UNITS/ML 1ML VIAL SQ SCH (22:47)
[2022-09-22] MEDS: PIPERACILLIN/TAZOB 2.25 GM 2.25 GM in DEXTROSE 5%-WATER - 50 ML IVPB SCH ×3 (01:05→17:56)
[2022-09-22] MEDS: TOBRAMYCIN 0.3% OPHTH SOLN 5 ML BOTTLE OD SCH ×3 (05:47→22:24)
[2022-09-22] MEDS: SEVELAMER CARBONATE 800 MG TAB (FP) PO SCH ×3 (08:29→17:57)
[2022-09-22] MEDS: AMINO ACIDS/PROTEIN HYDROLYS 30 ML LIQUID.PKT PO SCH ×2 (08:29→17:57)
[2022-09-22 09:43] LABS: CALCIUM 8.5 mg/dL (8.5-10.1)
[2022-09-22 09:44] LABS: ALBUMIN 1.4 g/dl (3.4-5.0); BLOOD UREA NITROGEN 29.8 mg/dL (7-18)
[2022-09-22 09:45] LABS: BASO % 0.6 % (0-2.0); EOS % 2.9 % (0-4.5); HEMATOCRIT 23.3 % (32.4-45.2); HEMOGLOBIN 7.5 GM/dL (10.7-15.3); LYMPH % 18.3 % (8-40); MCH 29.6 pg (25.7-33.7); MCHC 32.1 g/dl (32.0-36.0); MEAN CELL VOLUME 92.1 fl (80-96); MEAN PLT VOLUME 8.5 fl (7.5-11.1); MONO % 7.5 % (3.8-10.2); NEUT % 70.7 % (42.8-82.8); PLATELET COUNT 348 10^3/uL (134-434); RBC 2.53 M/mm3 (3.60-5.2); RDW 21.2 % (11.6-15.6); WHITE BLOOD COUNT 9.2 K/mm3 (4.0-10.0)
[2022-09-22 09:47] LABS: CREATININE 3.7 mg/dL (0.55-1.3)
[2022-09-22 09:49] LABS: BILIRUBIN,TOTAL 0.3 mg/dL (0.2-1)
[2022-09-22] MEDS ORDERED: SODIUM CHLORIDE 250 ML IV PRN (10:10)
[2022-09-22] MEDS ORDERED: EPOETIN ALFA-EPBX 10,000 UNIT/ML VIAL SQ ONE (11:00)
[2022-09-22] MEDS: HEPARIN NA (PORCINE) 5,000 UNITS/ML 1ML VIAL SQ SCH ×2 (13:03→22:23)
[2022-09-22] MEDS: VITAMIN B COMP W-C 1 EA TABLET (NEPHRO-VITE) PO SCH (13:03)
[2022-09-22] MEDS: ZINC SULFATE 220 MG CAPSULE (FP) PO SCH (13:03)
[2022-09-22] MEDS: FOLIC ACID 1 MG TABLET (FP) PO SCH (13:04)
[2022-09-22] MEDS: METOPROLOL TARTRATE 25 MG TABLET (FP) PO SCH ×4 (13:04→22:24)
[2022-09-22] MEDS: FAMOTIDINE 10 MG TABLET PO SCH (13:04)
[2022-09-22] MEDS: oxyCODONE HCL 5 MG TABLET PO PRN ×2 (13:05→20:30)
[2022-09-22] MEDS: ACETAMINOPHEN 325 MG TABLET (FP) PO PRN (13:06)
[2022-09-22] MEDS: ARTIFICIAL TEARS (POLYVINYL ALCOHOL) OPTH DROPS OU SCH ×4 (13:09→22:22)
[2022-09-22] MEDS: COLLAGENASE CLOSTRIDIUM HIST. 30 GRAMS TUBE TP SCH (13:33)
[2022-09-22] MEDS ORDERED: AMINO ACIDS/PROTEIN HYDROLYS 30 ML LIQUID.PKT PO SCH (18:00)
[2022-09-22] MEDS: ATORVASTATIN CA 40 MG TABLET (FP) PO SCH (22:24)
[2022-09-23] MEDS: PIPERACILLIN/TAZOB 2.25 GM 2.25 GM in DEXTROSE 5%-WATER - 50 ML IVPB SCH ×3 (01:26→17:40)
[2022-09-23] MEDS: TOBRAMYCIN 0.3% OPHTH SOLN 5 ML BOTTLE OD SCH ×3 (06:09→21:11)
[2022-09-23] MEDS: oxyCODONE HCL 5 MG TABLET PO PRN ×2 (09:26→14:59)
[2022-09-23] MEDS: SEVELAMER CARBONATE 800 MG TAB (FP) PO SCH ×3 (09:26→17:40)
[2022-09-23] MEDS: AMINO ACIDS/PROTEIN HYDROLYS 30 ML LIQUID.PKT PO SCH ×2 (09:27→17:40)
[2022-09-23] MEDS: FAMOTIDINE 10 MG TABLET PO SCH (10:00)
[2022-09-23] MEDS: FOLIC ACID 1 MG TABLET (FP) PO SCH (10:00)
[2022-09-23] MEDS: METOPROLOL TARTRATE 25 MG TABLET (FP) PO SCH ×2 (10:00→21:10)
[2022-09-23] MEDS: VITAMIN B COMP W-C 1 EA TABLET (NEPHRO-VITE) PO SCH (10:00)
[2022-09-23] MEDS: ZINC SULFATE 220 MG CAPSULE (FP) PO SCH (10:00)
[2022-09-23] MEDS: FERROUS SO4 325 MG TABLET (FP) PO SCH (10:00)
[2022-09-23] MEDS: HEPARIN NA (PORCINE) 5,000 UNITS/ML 1ML VIAL SQ SCH ×2 (10:02→21:09)
[2022-09-23] MEDS: COLLAGENASE CLOSTRIDIUM HIST. 30 GRAMS TUBE TP SCH (10:09)
[2022-09-23] MEDS: ARTIFICIAL TEARS (POLYVINYL ALCOHOL) OPTH DROPS OU SCH ×4 (10:11→21:12)
[2022-09-23] MEDS ORDERED: ACETAMINOPHEN 1000 MG/100 ML BAG IVPB PRN (14:22)
[2022-09-23] MEDS: ATORVASTATIN CA 40 MG TABLET (FP) PO SCH (21:10)
[2022-09-23] MEDS ORDERED: SODIUM CHLORIDE 250 ML IV PRN (21:27)
[2022-09-24] MEDS: PIPERACILLIN/TAZOB 2.25 GM 2.25 GM in DEXTROSE 5%-WATER - 50 ML IVPB SCH ×3 (01:37→18:50)
[2022-09-24] MEDS: oxyCODONE HCL 5 MG TABLET PO PRN ×3 (01:38→16:14)
[2022-09-24] MEDS: TOBRAMYCIN 0.3% OPHTH SOLN 5 ML BOTTLE OD SCH ×3 (06:48→21:55)
[2022-09-24] MEDS ORDERED: EPOETIN ALFA-EPBX 20,000 UNIT/ML VIAL SQ ONE (08:00)
[2022-09-24] MEDS: ACETAMINOPHEN 325 MG TABLET (FP) PO PRN ×2 (08:00→16:13)
[2022-09-24] MEDS: SEVELAMER CARBONATE 800 MG TAB (FP) PO SCH ×3 (08:00→17:36)
[2022-09-24] MEDS: AMINO ACIDS/PROTEIN HYDROLYS 30 ML LIQUID.PKT PO SCH ×2 (08:01→17:36)
[2022-09-24 09:52] LABS: HEMATOCRIT 22.7 % (32.4-45.2); HEMOGLOBIN 7.2 GM/dL (10.7-15.3); MCH 29.6 pg (25.7-33.7); MCHC 31.9 g/dl (32.0-36.0); MEAN CELL VOLUME 92.9 fl (80-96); MEAN PLT VOLUME 8.6 fl (7.5-11.1); PLATELET COUNT 358 10^3/uL (134-434); RBC 2.45 M/mm3 (3.60-5.2); RDW 21.7 % (11.6-15.6); WHITE BLOOD COUNT 10.5 K/mm3 (4.0-10.0)
[2022-09-24] MEDS: METOPROLOL TARTRATE 25 MG TABLET (FP) PO SCH ×2 (12:48→21:51)
[2022-09-24] MEDS: HEPARIN NA (PORCINE) 5,000 UNITS/ML 1ML VIAL SQ SCH ×2 (12:49→21:50)
[2022-09-24] MEDS: FOLIC ACID 1 MG TABLET (FP) PO SCH (12:49)
[2022-09-24] MEDS: FAMOTIDINE 10 MG TABLET PO SCH (12:49)
[2022-09-24] MEDS: VITAMIN B COMP W-C 1 EA TABLET (NEPHRO-VITE) PO SCH (12:49)
[2022-09-24] MEDS: ZINC SULFATE 220 MG CAPSULE (FP) PO SCH (12:49)
[2022-09-24] MEDS: COLLAGENASE CLOSTRIDIUM HIST. 30 GRAMS TUBE TP SCH (12:51)
[2022-09-24] MEDS: ARTIFICIAL TEARS (POLYVINYL ALCOHOL) OPTH DROPS OU SCH ×4 (12:51→21:54)
[2022-09-24] MEDS: ATORVASTATIN CA 40 MG TABLET (FP) PO SCH (21:51)
[2022-09-25] MEDS: PIPERACILLIN/TAZOB 2.25 GM 2.25 GM in DEXTROSE 5%-WATER - 50 ML IVPB SCH ×3 (01:39→17:33)
[2022-09-25] MEDS: oxyCODONE HCL 5 MG TABLET PO PRN ×3 (05:31→22:00)
[2022-09-25] MEDS: TOBRAMYCIN 0.3% OPHTH SOLN 5 ML BOTTLE OD SCH ×3 (05:32→21:38)
[2022-09-25] MEDS: AMINO ACIDS/PROTEIN HYDROLYS 30 ML LIQUID.PKT PO SCH ×2 (08:16→17:34)
[2022-09-25] MEDS: SEVELAMER CARBONATE 800 MG TAB (FP) PO SCH ×3 (08:16→17:33)
[2022-09-25] MEDS: FOLIC ACID 1 MG TABLET (FP) PO SCH (09:40)
[2022-09-25] MEDS: METOPROLOL TARTRATE 25 MG TABLET (FP) PO SCH ×2 (09:40→21:38)
[2022-09-25] MEDS: FERROUS SO4 325 MG TABLET (FP) PO SCH (09:41)
[2022-09-25] MEDS: VITAMIN B COMP W-C 1 EA TABLET (NEPHRO-VITE) PO SCH (09:41)
[2022-09-25] MEDS: FAMOTIDINE 10 MG TABLET PO SCH (09:41)
[2022-09-25] MEDS: HEPARIN NA (PORCINE) 5,000 UNITS/ML 1ML VIAL SQ SCH ×2 (09:41→21:38)
[2022-09-25] MEDS: ZINC SULFATE 220 MG CAPSULE (FP) PO SCH (09:41)
[2022-09-25] MEDS: ARTIFICIAL TEARS (POLYVINYL ALCOHOL) OPTH DROPS OU SCH ×4 (09:50→21:38)
[2022-09-25] MEDS ORDERED: morphine CARPU-JECT 2 MG/1 ML DISP.SYRIN IVPUSH PRN (10:31)
[2022-09-25] MEDS: ACETAMINOPHEN 325 MG TABLET (FP) PO PRN (13:50)
[2022-09-25] MEDS: COLLAGENASE CLOSTRIDIUM HIST. 30 GRAMS TUBE TP SCH (14:43)
[2022-09-25] MEDS: ATORVASTATIN CA 40 MG TABLET (FP) PO SCH (21:38)
[2022-09-26] MEDS: PIPERACILLIN/TAZOB 2.25 GM 2.25 GM in DEXTROSE 5%-WATER - 50 ML IVPB SCH ×2 (01:17→10:07)
[2022-09-26] MEDS: TOBRAMYCIN 0.3% OPHTH SOLN 5 ML BOTTLE OD SCH ×3 (05:34→22:28)
[2022-09-26] MEDS: VITAMIN B COMP W-C 1 EA TABLET (NEPHRO-VITE) PO SCH (10:07)
[2022-09-26] MEDS: METOPROLOL TARTRATE 25 MG TABLET (FP) PO SCH ×2 (10:07→22:28)
[2022-09-26] MEDS: FOLIC ACID 1 MG TABLET (FP) PO SCH (10:07)
[2022-09-26] MEDS: HEPARIN NA (PORCINE) 5,000 UNITS/ML 1ML VIAL SQ SCH ×2 (10:07→22:27)
[2022-09-26] MEDS: AMINO ACIDS/PROTEIN HYDROLYS 30 ML LIQUID.PKT PO SCH ×2 (10:07→16:31)
[2022-09-26] MEDS: SEVELAMER CARBONATE 800 MG TAB (FP) PO SCH ×3 (10:07→16:30)
[2022-09-26] MEDS: FAMOTIDINE 10 MG TABLET PO SCH (10:07)
[2022-09-26] MEDS: ZINC SULFATE 220 MG CAPSULE (FP) PO SCH (10:07)
[2022-09-26] MEDS: COLLAGENASE CLOSTRIDIUM HIST. 30 GRAMS TUBE TP SCH (10:07)
[2022-09-26] MEDS: ARTIFICIAL TEARS (POLYVINYL ALCOHOL) OPTH DROPS OU SCH ×4 (10:08→22:27)
[2022-09-26] MEDS: AMOX TR/POT CLAV 500MG/125MG TABLETS (FP) PO SCH (16:30)
[2022-09-26] MEDS: oxyCODONE HCL 5 MG TABLET PO PRN (16:31)
[2022-09-26] MEDS ORDERED: SODIUM CHLORIDE 250 ML IV PRN (18:17)
[2022-09-26] MEDS: ATORVASTATIN CA 40 MG TABLET (FP) PO SCH (22:28)
[2022-09-27] MEDS: TOBRAMYCIN 0.3% OPHTH SOLN 5 ML BOTTLE OD SCH ×3 (06:56→22:21)
[2022-09-27] MEDS ORDERED: EPOETIN ALFA-EPBX 10,000 UNIT/ML VIAL IVPUSH ONE (07:45)
[2022-09-27] MEDS: oxyCODONE HCL 5 MG TABLET PO PRN ×2 (08:33→14:24)
[2022-09-27] MEDS: AMINO ACIDS/PROTEIN HYDROLYS 30 ML LIQUID.PKT PO SCH ×2 (09:18→18:00)
[2022-09-27] MEDS: SEVELAMER CARBONATE 800 MG TAB (FP) PO SCH ×3 (09:24→18:00)
[2022-09-27] MEDS: ARTIFICIAL TEARS (POLYVINYL ALCOHOL) OPTH DROPS OU SCH ×4 (09:35→22:20)
[2022-09-27] MEDS: FAMOTIDINE 10 MG TABLET PO SCH (14:00)
[2022-09-27] MEDS: AMOX TR/POT CLAV 500MG/125MG TABLETS (FP) PO SCH ×2 (14:00→18:00)
[2022-09-27] MEDS: METOPROLOL TARTRATE 25 MG TABLET (FP) PO SCH ×4 (14:00→22:42)
[2022-09-27] MEDS: FERROUS SO4 325 MG TABLET (FP) PO SCH (14:01)
[2022-09-27] MEDS: VITAMIN B COMP W-C 1 EA TABLET (NEPHRO-VITE) PO SCH (14:01)
[2022-09-27] MEDS: ZINC SULFATE 220 MG CAPSULE (FP) PO SCH (14:01)
[2022-09-27] MEDS: COLLAGENASE CLOSTRIDIUM HIST. 30 GRAMS TUBE TP SCH (14:01)
[2022-09-27] MEDS: FOLIC ACID 1 MG TABLET (FP) PO SCH (14:01)
[2022-09-27] MEDS: HEPARIN NA (PORCINE) 5,000 UNITS/ML 1ML VIAL SQ SCH (14:03)
[2022-09-27] MEDS: ATORVASTATIN CA 40 MG TABLET (FP) PO SCH (22:20)
[2022-09-28] MEDS: TOBRAMYCIN 0.3% OPHTH SOLN 5 ML BOTTLE OD SCH ×3 (06:06→23:22)
[2022-09-28] MEDS ORDERED: MIDAZOLAM HCL 2 MG/2 ML SINGLE DOSE VIAL ONE (07:19)
[2022-09-28] MEDS ORDERED: PROPOFOL 40 ML ONE (07:19)
[2022-09-28] MEDS: SEVELAMER CARBONATE 800 MG TAB (FP) PO SCH ×4 (07:40→18:49)
[2022-09-28] MEDS: AMINO ACIDS/PROTEIN HYDROLYS 30 ML LIQUID.PKT PO SCH ×4 (07:41→18:48)
[2022-09-28] MEDS: AMOX TR/POT CLAV 500MG/125MG TABLETS (FP) PO SCH ×4 (07:41→18:48)
[2022-09-28] MEDS ORDERED: OFLOXACIN 0.3% OPHTHALMIC SOLUTION 5 ML BOTTLE ONE (08:41)
[2022-09-28] MEDS ORDERED: PROPOFOL 20 ML ONE (08:45)
[2022-09-28] MEDS ORDERED: OFLOXACIN 0.3% OPHTHALMIC SOLUTION 5 ML BOTTLE AS ONE (08:45)
[2022-09-28] MEDS ORDERED: ONDANSETRON 4 MG/2 ML VIAL IVPUSH PRN (08:54)
[2022-09-28] MEDS: METOPROLOL TARTRATE 25 MG TABLET (FP) PO SCH ×2 (10:54→23:22)
[2022-09-28] MEDS: VITAMIN B COMP W-C 1 EA TABLET (NEPHRO-VITE) PO SCH (10:54)
[2022-09-28] MEDS: FOLIC ACID 1 MG TABLET (FP) PO SCH (10:54)
[2022-09-28] MEDS: ARTIFICIAL TEARS (POLYVINYL ALCOHOL) OPTH DROPS OU SCH ×4 (10:54→23:19)
[2022-09-28] MEDS: ZINC SULFATE 220 MG CAPSULE (FP) PO SCH (10:54)
[2022-09-28] MEDS: FAMOTIDINE 10 MG TABLET PO SCH (10:54)
[2022-09-28] MEDS: oxyCODONE HCL 5 MG TABLET PO PRN (11:28)
[2022-09-28 13:22] LABS: BASO % 0.3 % (0-2.0); EOS % 0.8 % (0-4.5); HEMATOCRIT 31.1 % (32.4-45.2); LYMPH % 12.8 % (8-40); MCH 29.9 pg (25.7-33.7); MCHC 32.3 g/dl (32.0-36.0); MEAN CELL VOLUME 92.7 fl (80-96); MEAN PLT VOLUME 8.1 fl (7.5-11.1); NEUT % 75.1 % (42.8-82.8); PLATELET COUNT 331 10^3/uL (134-434); RBC 3.35 M/mm3 (3.60-5.2); RDW 21.4 % (11.6-15.6); WHITE BLOOD COUNT 9.4 K/mm3 (4.0-10.0)
[2022-09-28 13:49] LABS: ALBUMIN 1.6 g/dl (3.4-5.0); BLOOD UREA NITROGEN 22.9 mg/dL (7-18); CALCIUM 8.8 mg/dL (8.5-10.1)
[2022-09-28 13:50] LABS: CREATININE 3.6 mg/dL (0.55-1.3)
[2022-09-28 13:51] LABS: BILIRUBIN,TOTAL 0.4 mg/dL (0.2-1); TOT PROT 5.6 g/dl (6.4-8.2)
[2022-09-28 14:01] LABS: ANISOCYTOSIS 0; MACROCYTOSIS 0
[2022-09-28] MEDS: OFLOXACIN 0.3% OTIC SOLUTION 5 ML BOTTLE AS SCH ×2 (18:51→23:20)
[2022-09-28] MEDS: COLLAGENASE CLOSTRIDIUM HIST. 30 GRAMS TUBE TP SCH (18:52)
[2022-09-28] MEDS: ATORVASTATIN CA 40 MG TABLET (FP) PO SCH (23:21)
[2022-09-29] MEDS: TOBRAMYCIN 0.3% OPHTH SOLN 5 ML BOTTLE OD SCH ×2 (05:52→15:33)
[2022-09-29] MEDS: ACETAMINOPHEN 325 MG TABLET (FP) PO PRN (05:52)
[2022-09-29] MEDS: oxyCODONE HCL 5 MG TABLET PO PRN ×2 (05:53→15:36)
[2022-09-29] MEDS: AMOX TR/POT CLAV 500MG/125MG TABLETS (FP) PO SCH (08:22)
[2022-09-29] MEDS: AMINO ACIDS/PROTEIN HYDROLYS 30 ML LIQUID.PKT PO SCH ×2 (08:22→17:16)
[2022-09-29] MEDS ORDERED: SODIUM CHLORIDE 250 ML IV PRN (08:39)
[2022-09-29] MEDS ORDERED: EPOETIN ALFA-EPBX 4,000 UNIT/ML VIAL SQ ONE (09:30)
[2022-09-29 11:03] LABS: HEMATOCRIT 27.5 % (32.4-45.2); HEMOGLOBIN 8.8 GM/dL (10.7-15.3); MCHC 32.1 g/dl (32.0-36.0); MEAN CELL VOLUME 93.4 fl (80-96); MEAN PLT VOLUME 8.6 fl (7.5-11.1); PLATELET COUNT 278 10^3/uL (134-434); RBC 2.94 M/mm3 (3.60-5.2); WHITE BLOOD COUNT 8.6 K/mm3 (4.0-10.0)
[2022-09-29] MEDS: FAMOTIDINE 10 MG TABLET PO SCH (11:14)
[2022-09-29] MEDS: ARTIFICIAL TEARS (POLYVINYL ALCOHOL) OPTH DROPS OU SCH ×3 (11:14→17:24)
[2022-09-29] MEDS: SEVELAMER CARBONATE 800 MG TAB (FP) PO SCH ×3 (11:14→17:16)
[2022-09-29] MEDS: FERROUS SO4 325 MG TABLET (FP) PO SCH (11:14)
[2022-09-29] MEDS: FOLIC ACID 1 MG TABLET (FP) PO SCH (11:15)
[2022-09-29] MEDS: OFLOXACIN 0.3% OTIC SOLUTION 5 ML BOTTLE AS SCH (11:15)
[2022-09-29] MEDS: HEPARIN NA (PORCINE) 5,000 UNITS/ML 1ML VIAL SQ SCH (11:15)
[2022-09-29] MEDS: METOPROLOL TARTRATE 25 MG TABLET (FP) PO SCH (11:15)
[2022-09-29] MEDS: ZINC SULFATE 220 MG CAPSULE (FP) PO SCH (11:16)
[2022-09-29] MEDS: COLLAGENASE CLOSTRIDIUM HIST. 30 GRAMS TUBE TP SCH ×2 (11:16→15:32)
[2022-09-29] MEDS: VITAMIN B COMP W-C 1 EA TABLET (NEPHRO-VITE) PO SCH (11:16)
[2022-09-29 11:35] LABS: CALCIUM 8.3 mg/dL (8.5-10.1)
[2022-09-29 11:36] LABS: ALBUMIN 1.4 g/dl (3.4-5.0); BLOOD UREA NITROGEN 20.6 mg/dL (7-18)
[2022-09-29 11:39] LABS: CREATININE 3.1 mg/dL (0.55-1.3)
[2022-09-29 11:41] LABS: BILIRUBIN,TOTAL 0.3 mg/dL (0.2-1); TOT PROT 4.9 g/dl (6.4-8.2)
[2022-09-29 14:23] VITALS: RESP 20
[2022-09-29 18:46] VITALS: BP 129/96; PULSE 112; TEMP 97.8
== END 2022-09-29 20:50 | DRG 264 ==
LOC: JER 15:50 → JERBED 16:43 → OBSVTOIN 22:14 → J7W 09-03 02:12 → J4W 09-10 14:58 → J7W 09-13 18:51
PROVIDERS: ADMIT Internal Medicine; ATTEND Internal Medicine
PROC: 5A1D70Z Performance of Urinary Filtration, Intermittent, Less than 6 Hours Per Day (ICD-10-PCS; 2022-09-03)
PROC: 0JB70ZZ Excision of Back Subcutaneous Tissue and Fascia, Open Approach (ICD-10-PCS; principal; 2022-09-07)
PROC: 5A1D70Z Performance of Urinary Filtration, Intermittent, Less than 6 Hours Per Day (ICD-10-PCS; 2022-09-20)
PROC: 5A1D70Z Performance of Urinary Filtration, Intermittent, Less than 6 Hours Per Day (ICD-10-PCS; 2022-09-22)
PROC: 5A1D70Z Performance of Urinary Filtration, Intermittent, Less than 6 Hours Per Day (ICD-10-PCS; 2022-09-24)
PROC: 5A1D70Z Performance of Urinary Filtration, Intermittent, Less than 6 Hours Per Day (ICD-10-PCS; 2022-09-27)
PROC: 099670Z Drainage of Left Middle Ear with Drainage Device, Via Natural or Artificial Opening (ICD-10-PCS; 2022-09-28)
PROC: 0CTQXZZ Resection of Adenoids, External Approach (ICD-10-PCS; 2022-09-28)
PROC: 5A1D70Z Performance of Urinary Filtration, Intermittent, Less than 6 Hours Per Day (ICD-10-PCS; 2022-09-29)
DX: T82.898A Other specified complication of vascular prosthetic devices, implants and grafts, initial encounter (principal); L89.154 Pressure ulcer of sacral region, stage 4; N18.6 End stage renal disease; A52.16 Charcot's arthropathy (tabetic); I47.1 Supraventricular tachycardia; I12.0 Hypertensive chronic kidney disease with stage 5 chronic kidney disease or end stage renal disease; Z68.41 Body mass index [BMI] 40.0-44.9, adult; E11.52 Type 2 diabetes mellitus with diabetic peripheral angiopathy with gangrene; I96 Gangrene, not elsewhere classified; F32.2 Major depressive disorder, single episode, severe without psychotic features; E87.0 Hyperosmolality and hypernatremia; Y83.8 Other surgical procedures as the cause of abnormal reaction of the patient, or of later complication, without mention of misadventure at the time of the procedure; K21.9 Gastro-esophageal reflux disease without esophagitis; I48.0 Paroxysmal atrial fibrillation; E78.5 Hyperlipidemia, unspecified; E11.42 Type 2 diabetes mellitus with diabetic polyneuropathy; D64.9 Anemia, unspecified; H66.92 Otitis media, unspecified, left ear; H60.62 Unspecified chronic otitis externa, left ear; G56.82 Other specified mononeuropathies of left upper limb; R50.9 Fever, unspecified; H70.892 Other mastoiditis and related conditions, left ear; H70.12 Chronic mastoiditis, left ear; H90.12 Conductive hearing loss, unilateral, left ear, with unrestricted hearing on the contralateral side; K59.00 Constipation, unspecified; I25.10 Atherosclerotic heart disease of native coronary artery without angina pectoris; I08.1 Rheumatic disorders of both mitral and tricuspid valves; G51.0 Bell's palsy; M54.50 Low back pain, unspecified; E11.22 Type 2 diabetes mellitus with diabetic chronic kidney disease; Z99.2 Dependence on renal dialysis; E66.01 Morbid (severe) obesity due to excess calories; Z86.73 Personal history of transient ischemic attack (TIA), and cerebral infarction without residual deficits
CPT/HCPCS: 0241U-QW; 36415; 36430; 70480-TC; 71045-TC-FY; 80048; 80053; 82962; 83735; 84100; 84439; 84443; 85025; 85027; 85610; 85730; 86803; 86850; 86900; 86901; 86922; 87040; 87340; 87517; 93005; 93010; 93225; 93226; 93306-TC; 93971; 94760; 99285-25; C9803-CS; G0008; G0378; J1644; P9058; Q2036; Q5106; U0003; U0005

== ENCOUNTER 2022-10-04 16:58 | Inpatient (IN) | payer OTHER, BC ==
[2022-10-04 18:28] VITALS: BMI 41.6
[2022-10-04] MEDS ORDERED: VANCOMYCIN 1 GM in D5W (PRE-DOCKED) 1,000 MG/250 ML IVPB ONE (20:01)
[2022-10-04] MEDS ORDERED: PIPERACILLIN/TAZOB 2.25 GM 2.25 GM in DEXTROSE 5%-WATER - 50 ML IVPB ONE (20:01)
[2022-10-04] MEDS ORDERED: PIPERACILLIN/TAZOB 2.25 GM 2.25 GM/50 ML BAG IVPB ONE (20:28)
[2022-10-04] MEDS ORDERED: VANCOMYCIN/WATER FOR INJ (PEG) 1,000 MG/200 ML BAG IVPB ONE (20:28)
[2022-10-04 21:18] LABS: VENOUS BASE EXCESS 2.5 mmol/L (-2-2); VENOUS O2 SATURATION 40.5 % (70-80); VENOUS PCO2 55.4 mmHg (38-52); VENOUS PH 7.34 (7.310-7.410)
[2022-10-04 21:23] LABS: BASO % 0.5 % (0-2.0); EOS % 1.7 % (0-4.5); HEMATOCRIT 33.4 % (32.4-45.2); HEMOGLOBIN 10.6 GM/dL (10.7-15.3); LYMPH % 13.2 % (8-40); MCH 29.9 pg (25.7-33.7); MCHC 31.7 g/dl (32.0-36.0); MEAN CELL VOLUME 94.2 fl (80-96); MEAN PLT VOLUME 8.6 fl (7.5-11.1); MONO % 9.8 % (3.8-10.2); NEUT % 74.8 % (42.8-82.8); PLATELET COUNT 266 10^3/uL (134-434); RBC 3.55 M/mm3 (3.60-5.2); RDW 21.5 % (11.6-15.6); WHITE BLOOD COUNT 14.2 K/mm3 (4.0-10.0)
[2022-10-04 21:35] LABS: INR 1.25 (0.83-1.09); PROTHROMBIN TIME (PATIENT) 14.4 SEC (9.7-13.0)
[2022-10-04 21:38] LABS: ACTIVATED PTT 27.6 SECONDS (25.2-36.5)
[2022-10-04 21:46] LABS: ALBUMIN 1.6 g/dl (3.4-5.0); BLOOD UREA NITROGEN 41.8 mg/dL (7-18); CALCIUM 8.2 mg/dL (8.5-10.1)
[2022-10-04 21:47] LABS: MAGNESIUM 2.2 mg/dL (1.8-2.4)
[2022-10-04 21:49] LABS: CREATININE 6.3 mg/dL (0.55-1.3)
[2022-10-04 21:51] LABS: BILIRUBIN,TOTAL 0.4 mg/dL (0.2-1); TOT PROT 6.3 g/dl (6.4-8.2)
[2022-10-04 22:01] LABS: LACTIC ACID 2.3 mmol/L (0.4-2.0)
[2022-10-04 22:10] LABS: ANISOCYTOSIS 2+; MACROCYTOSIS 1+; OVALOCYTE 1+; TARGET CELLS 1+
[2022-10-05] MEDS ORDERED: ACETAMINOPHEN 1000 MG/100 ML BAG IVPB PRN (05:01)
[2022-10-05] MEDS ORDERED: ACETAMINOPHEN INJECTION 100 ML IVPB ONE (05:52)
[2022-10-05 15:12] LABS: BASO % 0.4 % (0-2.0); EOS % 2.8 % (0-4.5); HEMATOCRIT 29.8 % (32.4-45.2); HEMOGLOBIN 9.3 GM/dL (10.7-15.3); MCH 29.5 pg (25.7-33.7); MCHC 31.3 g/dl (32.0-36.0); MEAN CELL VOLUME 94.5 fl (80-96); MEAN PLT VOLUME 9.1 fl (7.5-11.1); MONO % 7.5 % (3.8-10.2); NEUT % 76.3 % (42.8-82.8); PLATELET COUNT 220 10^3/uL (134-434); RBC 3.16 M/mm3 (3.60-5.2); RDW 21.3 % (11.6-15.6); WHITE BLOOD COUNT 11.2 K/mm3 (4.0-10.0)
[2022-10-05 15:18] LABS: INR 1.29 (0.83-1.09); PROTHROMBIN TIME (PATIENT) 14.9 SEC (9.7-13.0)
[2022-10-05 15:21] LABS: ACTIVATED PTT 28.8 SECONDS (25.2-36.5)
[2022-10-05 15:31] LABS: CHLORIDE 99 mmol/L (98-107); SODIUM 137 mmol/L (136-145)
[2022-10-05 15:33] LABS: ALBUMIN 1.4 g/dl (3.4-5.0); ANION GAP 9 MMOL/L (8-16); BLOOD UREA NITROGEN 47.3 mg/dL (7-18); CO2 30 mmol/L (21-32); GLUCOSE,RANDOM 186 mg/dL (74-106)
[2022-10-05 15:36] LABS: CREATININE 6.6 mg/dL (0.55-1.3); SGOT/AST 16 U/L (15-37); SGPT/ALT 8 U/L (13-61)
[2022-10-05 15:38] LABS: BILIRUBIN,TOTAL 0.4 mg/dL (0.2-1); TOT PROT 5.5 g/dl (6.4-8.2)
[2022-10-05 15:39] LABS: ALK PHOS 124 U/L (45-117)
[2022-10-05] MEDS ORDERED: SODIUM CHLORIDE 250 ML IV PRN (16:31)
[2022-10-05] MEDS ORDERED: EPOETIN ALFA-EPBX 4,000 UNIT/ML VIAL SQ ONE (16:31)
[2022-10-05] MEDS ORDERED: DOCUSATE SODIUM 100 MG CAPSULE (FP) PO PRN (21:49)
[2022-10-05] MEDS ORDERED: ATORVASTATIN CA 40 MG TABLET (FP) PO SCH (22:00)
[2022-10-05] MEDS: GABAPENTIN 100 MG CAPSULE PO SCH (22:44)
[2022-10-05] MEDS: METOPROLOL TARTRATE 25 MG TABLET (FP) PO SCH (22:45)
[2022-10-05] MEDS: oxyCODONE HCL 5 MG TABLET PO PRN ×2 (22:46→22:55)
[2022-10-05] MEDS: ARTIFICIAL TEARS (POLYVINYL ALCOHOL) OPTH DROPS OU SCH (23:00)
[2022-10-06] MEDS: GABAPENTIN 100 MG CAPSULE PO SCH ×3 (06:24→21:11)
[2022-10-06] MEDS ORDERED: LIDOCAINE HCL 1%, 10 MG/ML (20ML VIAL) ONE (07:14)
[2022-10-06] MEDS ORDERED: HEPARIN NA (PORCINE) 5,000 UNITS/ML 1ML VIAL ONE (07:15)
[2022-10-06] MEDS ORDERED: POVIDONE-IODINE OINTMENT 10% - 28.4 GM TUBE ONE (07:16)
[2022-10-06] MEDS ORDERED: PROPOFOL 20 ML ONE (07:32)
[2022-10-06] MEDS ORDERED: MIDAZOLAM HCL 2 MG/2 ML SINGLE DOSE VIAL ONE (07:32)
[2022-10-06] MEDS ORDERED: SEVELAMER CARBONATE 800 MG TAB (FP) PO SCH (08:00)
[2022-10-06] MEDS ORDERED: ceFAZolin SODIUM 1 GM VIAL ONE (09:10)
[2022-10-06] MEDS ORDERED: ceFAZolin SODIUM 1 GM VIAL IVPB ONE (09:15)
[2022-10-06] MEDS ORDERED: HEPARIN NA (PORCINE) 5,000 UNITS/ML 1ML VIAL IV ONE ×2 (09:30)
[2022-10-06] MEDS ORDERED: LIDOCAINE HCL 1%, 10 MG/ML (20ML VIAL) NR ONE ×2 (09:31)
[2022-10-06] MEDS ORDERED: FAMOTIDINE 10 MG TABLET PO SCH (10:00)
[2022-10-06] MEDS ORDERED: FOLIC ACID 1 MG TABLET (FP) PO SCH (10:00)
[2022-10-06] MEDS ORDERED: DOCUSATE SODIUM 100 MG CAPSULE (FP) PO PRN (10:32)
[2022-10-06] MEDS ORDERED: oxyCODONE HCL 5 MG TABLET PO PRN (10:32)
[2022-10-06] MEDS ORDERED: ONDANSETRON 4 MG/2 ML VIAL IVPUSH PRN (12:19)
[2022-10-06] MEDS: METOPROLOL TARTRATE 25 MG TABLET (FP) PO SCH (12:45)
[2022-10-06] MEDS: ARTIFICIAL TEARS (POLYVINYL ALCOHOL) OPTH DROPS OU SCH ×4 (12:45→21:20)
[2022-10-06] MEDS ORDERED: EPOETIN ALFA-EPBX 4,000 UNIT/ML VIAL IVPUSH ONE (13:00)
[2022-10-06] MEDS: SEVELAMER CARBONATE 800 MG TAB (FP) PO SCH ×2 (13:00→18:20)
[2022-10-06] MEDS ORDERED: SODIUM CHLORIDE 250 ML IV PRN (13:00)
[2022-10-06] MEDS: METOPROLOL TARTRATE 5 MG/5 ML VIAL IVPUSH PRN ×2 (13:36→18:20)
[2022-10-06 15:39] LABS: HEMATOCRIT 28.9 % (32.4-45.2); HEMOGLOBIN 9.4 GM/dL (10.7-15.3); MCH 30.6 pg (25.7-33.7); MCHC 32.5 g/dl (32.0-36.0); PLATELET COUNT 233 10^3/uL (134-434); RBC 3.08 M/mm3 (3.60-5.2); RDW 20.7 % (11.6-15.6); WHITE BLOOD COUNT 10.4 K/mm3 (4.0-10.0)
[2022-10-06 15:51] LABS: BLOOD UREA NITROGEN 50.3 mg/dL (7-18)
[2022-10-06 15:54] LABS: CREATININE 7.1 mg/dL (0.55-1.3)
[2022-10-06] MEDS: COLLAGENASE CLOSTRIDIUM HIST. 30 GRAMS TUBE TP SCH (19:04)
[2022-10-06] MEDS ORDERED: METOPROLOL TARTRATE 25 MG TABLET (FP) PO SCH (22:00)
[2022-10-06] MEDS ORDERED: ATORVASTATIN CA 40 MG TABLET (FP) PO SCH (22:00)
[2022-10-07 05:53] VITALS: TEMP 98.2
[2022-10-07] MEDS: GABAPENTIN 100 MG CAPSULE PO SCH ×2 (05:55→13:16)
[2022-10-07] MEDS ORDERED: AMINO ACIDS/PROTEIN HYDROLYS 30 ML LIQUID.PKT PO SCH (08:00)
[2022-10-07] MEDS: SEVELAMER CARBONATE 800 MG TAB (FP) PO SCH ×2 (08:28→13:18)
[2022-10-07] MEDS ORDERED: METOPROLOL TARTRATE 25 MG TABLET (FP) PO SCH (09:25)
[2022-10-07] MEDS: ARTIFICIAL TEARS (POLYVINYL ALCOHOL) OPTH DROPS OU SCH ×2 (09:44→14:28)
[2022-10-07] MEDS: COLLAGENASE CLOSTRIDIUM HIST. 30 GRAMS TUBE TP SCH (09:45)
[2022-10-07] MEDS ORDERED: FAMOTIDINE 10 MG TABLET PO SCH (10:00)
[2022-10-07] MEDS ORDERED: FOLIC ACID 1 MG TABLET (FP) PO SCH (10:00)
[2022-10-07] MEDS ORDERED: VITAMIN B COMP W-C 1 EA TABLET (NEPHRO-VITE) PO SCH (10:00)
[2022-10-07 11:31] VITALS: RESP 18
[2022-10-07 11:32] VITALS: BP 123/62; PULSE 120
== END 2022-10-07 14:51 | DRG 252 ==
LOC: JER 16:58 → JERBED 22:46 → J4W 10-05 17:22
PROVIDERS: ADMIT Internal Medicine; ATTEND Internal Medicine
PROC: 037 Upper Arteries, Dilation (ICD-10-PCS; 2022-10-06)
PROC: 3E06317 Introduction of Other Thrombolytic into Central Artery, Percutaneous Approach (ICD-10-PCS; 2022-10-06)
PROC: B50WYZZ Plain Radiography of Dialysis Shunt/Fistula using Other Contrast (ICD-10-PCS; 2022-10-06)
PROC: 5A1D70Z Performance of Urinary Filtration, Intermittent, Less than 6 Hours Per Day (ICD-10-PCS; 2022-10-06)
PROC: 05CY3ZZ Extirpation of Matter from Upper Vein, Percutaneous Approach (ICD-10-PCS; principal; 2022-10-06 09:00)
PROC: 03CY3ZZ Extirpation of Matter from Upper Artery, Percutaneous Approach (ICD-10-PCS; 2022-10-06 09:00)
DX: T82.868A Thrombosis due to vascular prosthetic devices, implants and grafts, initial encounter (principal); L89.154 Pressure ulcer of sacral region, stage 4; N18.6 End stage renal disease; I12.0 Hypertensive chronic kidney disease with stage 5 chronic kidney disease or end stage renal disease; Z68.41 Body mass index [BMI] 40.0-44.9, adult; I47.1 Supraventricular tachycardia; I24.8 Other forms of acute ischemic heart disease; Y83.8 Other surgical procedures as the cause of abnormal reaction of the patient, or of later complication, without mention of misadventure at the time of the procedure; E11.22 Type 2 diabetes mellitus with diabetic chronic kidney disease; E78.5 Hyperlipidemia, unspecified; G51.0 Bell's palsy; K21.9 Gastro-esophageal reflux disease without esophagitis; K59.00 Constipation, unspecified; M54.50 Low back pain, unspecified; D64.9 Anemia, unspecified; E66.01 Morbid (severe) obesity due to excess calories; E11.610 Type 2 diabetes mellitus with diabetic neuropathic arthropathy; Z99.2 Dependence on renal dialysis
CPT/HCPCS: 0241U-QW; 36415; 71045-TC-FY; 76000-TC-FY; 80048; 80053; 82803; 82962; 83605; 83735; 84100; 84443; 84484; 85025; 85027; 85610; 85730; 86803; 86850; 86900; 86901; 87040; 87340; 93005; 93010; 94760; 99285-25; C1757; J1644; Q5106

== ENCOUNTER 2022-10-24 07:41 | Inpatient (IN) | payer OTHER, BC ==
[2022-10-24 09:16] LABS: BASO % 0.7 % (0-2.0); EOS % 1.7 % (0-4.5); HEMATOCRIT 25.3 % (32.4-45.2); HEMOGLOBIN 8.1 GM/dL (10.7-15.3); LYMPH % 24.9 % (8-40); MCHC 32.1 g/dl (32.0-36.0); MEAN CELL VOLUME 96.6 fl (80-96); MEAN PLT VOLUME 8.1 fl (7.5-11.1); MONO % 10.6 % (3.8-10.2); NEUT % 62.1 % (42.8-82.8); PLATELET COUNT 350 10^3/uL (134-434); RBC 2.62 M/mm3 (3.60-5.2); WHITE BLOOD COUNT 6.7 K/mm3 (4.0-10.0)
[2022-10-24 09:42] LABS: INR 1.25 (0.83-1.09); PROTHROMBIN TIME (PATIENT) 14.5 SEC (9.7-13.0)
[2022-10-24 09:44] LABS: ACTIVATED PTT 28.8 SECONDS (25.2-36.5)
[2022-10-24 10:02] LABS: CALCIUM 8.7 mg/dL (8.5-10.1)
[2022-10-24 10:03] LABS: ALBUMIN 1.6 g/dl (3.4-5.0); MAGNESIUM 2.3 mg/dL (1.8-2.4)
[2022-10-24 10:06] LABS: PHOSPHOROUS 2.9 mg/dL (2.5-4.9)
[2022-10-24 10:07] LABS: BILIRUBIN,TOTAL 0.4 mg/dL (0.2-1); TOT PROT 6.2 g/dl (6.4-8.2)
[2022-10-24 10:37] LABS: BLOOD UREA NITROGEN 29.6 mg/dL (7-18); CREATININE 5.5 mg/dL (0.55-1.3)
[2022-10-24 10:39] LABS: ANISOCYTOSIS 1+; MACROCYTOSIS 0
[2022-10-24] MEDS ORDERED: SODIUM CHLORIDE 250 ML IV PRN (11:47)
[2022-10-24] MEDS: SEVELAMER CARBONATE 800 MG TAB (FP) PO SCH (18:39)
[2022-10-24] MEDS: ATORVASTATIN CA 40 MG TABLET (FP) PO SCH (21:44)
[2022-10-24] MEDS: HEPARIN NA (PORCINE) 5,000 UNITS/ML 1ML VIAL SQ SCH (21:44)
[2022-10-24] MEDS: POLYETHYLENE GLYCOL (HEALTHYLAX) 3350 17 GM PACKET PO SCH (21:45)
[2022-10-25] MEDS: ARTIFICIAL TEARS (POLYVINYL ALCOHOL) OPTH DROPS OU SCH ×6 (00:11→22:14)
[2022-10-25] MEDS: ACETAMINOPHEN 325 MG TABLET (FP) PO PRN ×2 (00:27→22:45)
[2022-10-25] MEDS: oxyCODONE HCL 5 MG TABLET PO PRN ×2 (02:38→22:30)
[2022-10-25] MEDS: SEVELAMER CARBONATE 800 MG TAB (FP) PO SCH ×3 (08:41→18:28)
[2022-10-25] MEDS ORDERED: FERROUS SO4 325 MG TABLET (FP) PO SCH (10:00)
[2022-10-25] MEDS ORDERED: ONDANSETRON 4 MG/2 ML VIAL IVPUSH PRN (11:23)
[2022-10-25] MEDS: FAMOTIDINE 20 MG TABLET PO SCH (11:39)
[2022-10-25] MEDS: POLYETHYLENE GLYCOL (HEALTHYLAX) 3350 17 GM PACKET PO SCH ×2 (11:39→22:51)
[2022-10-25] MEDS: HEPARIN NA (PORCINE) 5,000 UNITS/ML 1ML VIAL SQ SCH ×2 (11:40→22:44)
[2022-10-25] MEDS: FOLIC ACID 1 MG TABLET (FP) PO SCH (11:43)
[2022-10-25] MEDS: COLLAGENASE CLOSTRIDIUM HIST. 30 GRAMS TUBE TP SCH (14:38)
[2022-10-25] MEDS: ATORVASTATIN CA 40 MG TABLET (FP) PO SCH (22:44)
[2022-10-26] MEDS: ACETAMINOPHEN 325 MG TABLET (FP) PO PRN (04:40)
[2022-10-26] MEDS: oxyCODONE HCL 5 MG TABLET PO PRN ×2 (04:42→15:32)
[2022-10-26] MEDS: SEVELAMER CARBONATE 800 MG TAB (FP) PO SCH ×3 (09:32→11:47)
[2022-10-26] MEDS: FOLIC ACID 1 MG TABLET (FP) PO SCH ×2 (09:32→09:47)
[2022-10-26] MEDS: FAMOTIDINE 20 MG TABLET PO SCH ×2 (09:33→09:47)
[2022-10-26] MEDS: HEPARIN NA (PORCINE) 5,000 UNITS/ML 1ML VIAL SQ SCH ×2 (09:33→23:34)
[2022-10-26] MEDS: COLLAGENASE CLOSTRIDIUM HIST. 30 GRAMS TUBE TP SCH (09:34)
[2022-10-26] MEDS: ARTIFICIAL TEARS (POLYVINYL ALCOHOL) OPTH DROPS OU SCH ×4 (09:34→23:34)
[2022-10-26] MEDS: POLYETHYLENE GLYCOL (HEALTHYLAX) 3350 17 GM PACKET PO SCH ×2 (09:34→23:34)
[2022-10-26] MEDS ORDERED: HEPARIN NA (PORCINE) 5,000 UNITS/ML 1ML VIAL ONE (10:35)
[2022-10-26] MEDS ORDERED: LIDOCAINE HCL 1%, 10 MG/ML (20ML VIAL) ONE (10:35)
[2022-10-26] MEDS ORDERED: LIDOCAINE HCL 1%, 10 MG/ML (20ML VIAL) INF ONE ×3 (10:46→13:49)
[2022-10-26] MEDS ORDERED: HEPARIN NA (PORCINE) 5,000 UNITS/ML 1ML VIAL SQ ONE ×7 (10:47→14:00)
[2022-10-26] MEDS ORDERED: PROPOFOL 20 ML ONE (13:03)
[2022-10-26] MEDS ORDERED: ROCURONIUM BROMIDE 50 MG/5 ML SYRINGE ONE (13:04)
[2022-10-26] MEDS ORDERED: SUCCINYLCHOLINE CHLORIDE 200 MG/10 ML SYRINGE ONE (13:04)
[2022-10-26] MEDS ORDERED: MIDAZOLAM HCL 2 MG/2 ML SINGLE DOSE VIAL ONE ×2 (13:04→13:37)
[2022-10-26] MEDS ORDERED: ceFAZolin SODIUM 1 GM VIAL IVPB ONE (13:37)
[2022-10-26] MEDS ORDERED: ONDANSETRON 4 MG/2 ML VIAL IVPUSH PRN (14:32)
[2022-10-26] MEDS ORDERED: ACETAMINOPHEN 325 MG TABLET (FP) PO PRN (14:32)
[2022-10-26] MEDS ORDERED: oxyCODONE HCL 5 MG TABLET ONE (15:27)
[2022-10-26 16:44] VITALS: BMI 44.2
[2022-10-26] MEDS ORDERED: EPOETIN ALFA-EPBX 10,000 UNIT/ML VIAL IVPUSH ONE (19:00)
[2022-10-26] MEDS ORDERED: ATORVASTATIN CA 40 MG TABLET (FP) PO SCH (22:00)
[2022-10-27] MEDS: SEVELAMER CARBONATE 800 MG TAB (FP) PO SCH ×4 (07:21→17:04)
[2022-10-27] MEDS: POLYETHYLENE GLYCOL (HEALTHYLAX) 3350 17 GM PACKET PO SCH (09:53)
[2022-10-27] MEDS: HEPARIN NA (PORCINE) 5,000 UNITS/ML 1ML VIAL SQ SCH (09:54)
[2022-10-27] MEDS ORDERED: FERROUS SO4 325 MG TABLET (FP) PO SCH (10:00)
[2022-10-27] MEDS ORDERED: FAMOTIDINE 20 MG TABLET PO SCH (10:00)
[2022-10-27] MEDS ORDERED: VITAMIN B COMP W-C 1 EA TABLET (NEPHRO-VITE) PO SCH (10:00)
[2022-10-27] MEDS ORDERED: FOLIC ACID 1 MG TABLET (FP) PO SCH (10:00)
[2022-10-27] MEDS ORDERED: COLLAGENASE CLOSTRIDIUM HIST. 30 GRAMS TUBE TP SCH (10:00)
[2022-10-27] MEDS: oxyCODONE HCL 5 MG TABLET PO PRN (10:03)
[2022-10-27] MEDS: ARTIFICIAL TEARS (POLYVINYL ALCOHOL) OPTH DROPS OU SCH ×2 (10:05→14:23)
[2022-10-27 16:11] VITALS: BP 131/46; PULSE 81; RESP 18; TEMP 99.4
== END 2022-10-27 17:37 | DRG 314 ==
LOC: JER 07:41 → JERBED 12:15 → J5S 15:39 → OBSVTOIN 10-26 11:49
PROVIDERS: ADMIT Internal Medicine; ATTEND Internal Medicine
PROC: 5A1D70Z Performance of Urinary Filtration, Intermittent, Less than 6 Hours Per Day (ICD-10-PCS; 2022-10-26)
PROC: 05HY33Z Insertion of Infusion Device into Upper Vein, Percutaneous Approach (ICD-10-PCS; principal; 2022-10-26 11:00)
DX: T82.898A Other specified complication of vascular prosthetic devices, implants and grafts, initial encounter (principal); L89.153 Pressure ulcer of sacral region, stage 3; N18.6 End stage renal disease; Z68.41 Body mass index [BMI] 40.0-44.9, adult; I13.10 Hypertensive heart and chronic kidney disease without heart failure, with stage 1 through stage 4 chronic kidney disease, or unspecified chronic kidney disease; E78.5 Hyperlipidemia, unspecified; E11.22 Type 2 diabetes mellitus with diabetic chronic kidney disease; K21.9 Gastro-esophageal reflux disease without esophagitis; L89.600 Pressure ulcer of unspecified heel, unstageable; Y83.9 Surgical procedure, unspecified as the cause of abnormal reaction of the patient, or of later complication, without mention of misadventure at the time of the procedure; E66.9 Obesity, unspecified; Z99.2 Dependence on renal dialysis
CPT/HCPCS: 0241U-QW; 36415; 71045-TC-FY; 76000-TC-FY; 80053; 82962; 83735; 84100; 85025; 85610; 85730; 86850; 86900; 86901; 93005; 93010; 94760; 97161-GP; 99285-25; C1750; E0186; G0378; J1644; Q5106